=== PATIENT | female | born 1995 | race Caucasian/White ===

== ENCOUNTER 2017-03-12 12:54 | Inpatient (IN) | payer MEDICAID ==
[2017-03-12] MEDS ORDERED: Acetaminophen 325 MG Tab PO ONE (13:47)
[2017-03-12] MEDS ORDERED: Sodium Chloride 0.9% 10 ML Syringe FLUSH PRN (17:33)
[2017-03-12] MEDS ORDERED: Calcium Carbonate 500 MG Tab.Chew PO PRN (17:33)
[2017-03-12] MEDS ORDERED: Acetaminophen 325 MG Tab PO PRN (17:33)
[2017-03-12] MEDS ORDERED: Ondansetron 4 MG/2 ML SDV IV PRN (17:33)
--- NOTE | 2017-03-12 18:05 | PCM.LDHP ---
L&D History of Present Illness - General Date of Service: 03/12/17 Admit Problem/Dx: Patient Status Order with Admit Dx/Problem 03/12/17 17:33 Patient Status [ADT] Routine Admission Diagnosis/Problem Admission Diagnosis/Problem Source of Information: Patient History Limitations: Reports: No Limitations - Related Data Allergies/Adverse Reactions: Allergies Allergy/AdvReac Type Severity Reaction Status Date / Time No Known Allergies Allergy Verified 03/08/17 20:05 Home Medications: Home Meds Omeprazole [Omeprazole] 20 mg PO DAILY PRN 03/06/17 [History] Pnv with Ca,No.72/Iron/Fa [ Plus Tablet] 1 tab PO DAILY 03/06/17 [ History] Triamcinolone Acetonide [Triamcinolone Acetonide 0.1% Crm] 1 applic TOP ASDIRECTED PRN 03/06/17 [History] predniSONE [Take Home: predniSONE 20 MG, 2 Tab Pack] 20 mg PO DAILY PRN [History] Past Medical History 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 MICHELLE-03/12/2017 Psychiatric History: Reports: Anxiety, Depression - Past Surgical History Dermatological Surgical History: Reports: None H&P Review of Systems - Review of Systems: Review Of Systems: See Below General: Reports: No Symptoms HEENT: Reports: No Symptoms Pulmonary: Reports: No Symptoms Cardiovascular: Reports: No Symptoms Gastrointestinal: Reports: No Symptoms Genitourinary: Reports: No Symptoms Musculoskeletal: Reports: No Symptoms Skin: Reports: No Symptoms Psychiatric: Reports: No Symptoms Neurological: Reports: No Symptoms Hematologic/Lymphatic: Reports: No Symptoms Immunologic: Reports: No Symptoms L&D Exam - Exam Exam: See Below - Vital Signs Vital Signs: Last Vital Signs Temp 37.3 C 03/12/17 16:40 Pulse 92 03/12/17 16:40 Resp 16 03/12/17 16:40 BP 118/65 03/12/17 16:40 Pulse Ox 97 03/12/17 16:40 Weight: 172 kg - OB Specific Contraction Duration (sec): 100-140 Contraction Frequency (min): 3-3.5 Contraction Intensity: Moderate Presentation: Vertex - Waters Score Waters Score Cervix Position: Anterior Waters Score Consistency: Soft Waters Score Effacement: >80% Waters Score Dilation: 3-4 cm Waters Score Infant's Station: -2 Waters Score Total: 10 - Exam General: Alert, Oriented HEENT: PERRLA, Conjunctiva Clear, EACs Clear, EOMI, Hearing Intact, Mucosa Moist & [place], Nares Patent, Normal Nasal Septum, Posterior Pharynx Clear, Pupils Equal, Pupils Reactive, TMs Clear Neck: Supple, Trachea Midline Lungs: Clear to Auscultation, Normal Respiratory Effort Cardiovascular: Regular Rate, Regular Rhythm Abdomen: Normal Bowel Sounds, Soft, Pelvis Stable Genitourinary: Normal external exam Back Exam: Normal Inspection, Full Range of Motion Extremities: Normal Inspection Skin: Warm, Dry, Intact Neurological: Cranial Nerves Intact, Reflexes Equal Bilateral DTR: 2+: Patella (L), Patella (R) Psychiatric: Alert, Normal Affect, Normal Mood - Patient Data Lab Results last 24 hrs: Laboratory Results - last 24 hr 03/12/17 03/12/17 03/12/17 Range/Units 13:01 15:29 17:33 WBC 12.6 H (4.5-11.0) K/uL RBC 4.15 (3.30-5.50) M/uL Hgb 12.7 (12.0-15.0) g/dL Hct 37.6 (36.0-48.0) % MCV 91 (80-98) fL MCH 31 (27-31) pg MCHC 34 (32-36) % Plt Count 192 (150-400) K/uL Neut % (Auto) 77 H (36-66) % Lymph % (Auto) 12 L (24-44) % [place] % (Auto) 9 H (2-6) % Eos % (Auto) 3 (2-4) % Baso % (Auto) 0 (0-1) % Urine Color Yellow Urine Appearance Slightly cloudy Urine pH 6.0 (4.5-8.0) Ur Specific [place] 1.020 (1.008-1.030) Urine Protein Negative (NEGATIVE) mg/dL Urine Glucose (UA) Normal (NEGATIVE) mg/dL Urine Ketones Negative (NEGATIVE) mg/dL Urine Occult Blood Negative (NEGATIVE) Urine Nitrite Negative (NEGATIVE) Urine Bilirubin Small (NEGATIVE) Urine Urobilinogen 1 (NORMAL) mg/dL Ur Leukocyte Esterase Negative (NEGATIVE) Urine RBC 0-5 (0-5) Urine WBC 0-5 (0-5) Ur Epithelial Cells Few Amorphous Sediment Not seen Urine Bacteria Few Urine Mucus Moderate Urine Opiates Screen Negative (NEGATIVE) Ur Oxycodone Screen Negative (NEGATIVE) Urine Methadone Screen Negative (NEGATIVE) Ur Propoxyphene Screen Negative (NEGATIVE) Ur Barbiturates Screen Negative (NEGATIVE) Ur Tricyclics Screen Negative (NEGATIVE) Ur Phencyclidine Scrn Negative (NEGATIVE) Ur Amphetamine Screen Negative (NEGATIVE) U Methamphetamines Scrn Negative (NEGATIVE) Urine MDMA Screen Negative (NEGATIVE) U Benzodiazepines Scrn Negative (NEGATIVE) U Cocaine Metab Screen Negative (NEGATIVE) U Marijuana (THC) Screen Positive H (NEGATIVE) Result Diagrams: 03/12/17 15:29 - Problem List (1) SNOMED Code(s): 49756046 ICD Code: Z33.1 - STATE, INCIDENTAL Status: Acute Current Visit : Yes Qualifiers: Weeks of gestation: 40 weeks Qualified Code(s): Z3A.40 - 40 weeks gestation of (2) Active labor SNOMED Code(s): 03178754 ICD Code: [id number] - Status: Acute Current Visit: Yes Problem List Initiated/Reviewed/Updated: Yes Orders Last 24hrs: Active Orders 24 hr Category Date Time Status Patient Status [ADT] Routine ADT 03/12/17 17:33 Active Ambulate [RC] PER UNIT ROUTINE Care 03/12/17 17:33 Active Communication Order [RC] ASDIRECTED Care 03/12/17 17:33 Active Heart Tones [RC] PER UNIT ROUTINE Care 03/12/17 17:33 Active May Shower [RC] ASDIRECTED Care 03/12/17 17:33 Active Notify Provider Vital Signs [RC] PRN Care 03/12/17 17:33 Active Notify Provider [RC] PRN Care 03/12/17 17:33 Active OB Check [OM.PC] Click to Edit Care 03/12/17 13:01 Ordered Up ad Latesha [RC] ASDIRECTED Care 03/12/17 17:33 Active VTE/DVT Education [RC] Click to Edit Care 03/12/17 17:37 Active Vital Signs [RC] PER UNIT ROUTINE Care 03/12/17 17:33 Active Regular Diet [DIET] Diet 03/12/17 Dinner Active Acetaminophen [Tylenol] Med 03/12/17 17:33 Active 650 mg PO Q4H PRN Calcium Carbonate [Tums] Med 03/12/17 17:33 Active 1,000 mg PO Q2H PRN Ondansetron [Zofran] Med 03/12/17 17:33 Active 4 mg IV Q4H PRN Oxytocin/Normal Saline [Pitocin in NS 20 Units/1,000 ML Med 03/12/17 17:37 Active ] 20 unit in 1,000 ml IV ONETIME Sodium Chloride 0.9% [Saline Flush] Med 03/12/17 17:33 Ordered 10 ml FLUSH ASDIRECTED PRN fentaNYL [Sublimaze] Med 03/12/17 17:33 Active 100 mcg IVPUSH Q1H PRN DVT/VTE Prophylaxis Reflex [OM.PC] Routine Oth 03/12/17 17:33 Ordered Saline Lock Insert [OM.PC] Routine Oth 03/12/17 17:33 Ordered Resuscitation Status Routine Resus Stat 03/12/17 17:33 Ordered Medication Orders Acetaminophen (Tylenol) 650 mg PO Q4H PRN PRN Reason: Pain (Mild 1-3) and fever Calcium Carbonate/Glycine (Tums) 1,000 mg PO Q2H PRN PRN Reason: Indigestion Fentanyl (Sublimaze) 100 mcg IVPUSH Q1H PRN PRN Reason: Pain (moderate 4-6) Oxytocin/Sodium Chloride (Pitocin In Ns 20 Units/1,000 Ml) 20 unit in 1,000 mls @ 2,997 mls/hr IV ONETIME ONE; 999 MUNITS/MIN PRN Reason: Protocol Stop: 03/12/17 17:57 Ondansetron HCl (Zofran) 4 mg IV Q4H PRN PRN Reason: Nausea/Vomiting Sodium Chloride (Saline Flush) 10 ml FLUSH ASDIRECTED PRN PRN Reason: Keep Vein Open Assessment/Plan Comment:: 03/12/2017 21 yo at 40 0/7 weeks gestation came in today complaining of contractions Initial SVE was 3/95/-3 after walking, ball, and more activities patient is now 4.5/100/-2 with a bulgy bag Decision made to admit patient at this time. Labs-O negative, GBS negative, Rubella Immune, RPR nonreactive, Hep B negative, HIV negative, Hgb 12.7, and THC positive in urine Plan- Continue to monitor for active labor Continue to monitor intermittently for FHTs Up and about May shower, may go in tub May eat regular diet Pain management per patient request Plan and anticipate a vaginal delivery
[2017-03-12] MEDS ORDERED: Zolpidem 5 MG Tab PO PRN (22:40)
--- NOTE | 2017-03-12 22:42 | PCM.PNLD ---
Labor Progress Note - VS & Meds Vital Signs: Last Vital Signs Temp 37.3 C 03/12/17 19:00 Pulse 88 03/12/17 19:00 Resp 18 03/12/17 19:00 BP 114/67 03/12/17 19:00 Pulse Ox 99 03/12/17 19:00 Active Medications: Current Medications Acetaminophen (Tylenol) 650 mg PO Q4H PRN PRN Reason: Pain (Mild 1-3) and fever Calcium Carbonate/Glycine (Tums) 1,000 mg PO Q2H PRN PRN Reason: Indigestion Fentanyl (Sublimaze) 100 mcg IVPUSH Q1H PRN PRN Reason: Pain (moderate 4-6) Ondansetron HCl (Zofran) 4 mg IV Q4H PRN PRN Reason: Nausea/Vomiting Sodium Chloride (Saline Flush) 10 ml FLUSH ASDIRECTED PRN PRN Reason: Keep Vein Open Discontinued Medications Acetaminophen (Tylenol) 650 mg PO NOW ONE Stop: 03/12/17 13:48 Last Admin: 03/12/17 13:59 Dose: 650 mg Oxytocin/Sodium Chloride (Pitocin In Ns 20 Units/1,000 Ml) 20 unit in 1,000 mls @ 2,997 mls/hr IV ONETIME ONE; 999 MUNITS/MIN PRN Reason: Protocol Stop: 03/12/17 17:57 - Uterine Contractions Uterine Monitoring Mode: External [place] Contraction Frequency (min): 3-4 Contraction Duration (sec): 50-120 Contraction Intensity: Strong Uterine Resting Tone: Soft - Vaginal Exam Dilation (cm): 4 Effacement (Percent): 90 Station: -2 Cervical Position: Anterior Sterile Vaginal Exam Performed By: Susan Chris Vaginal Exam Comment: bulging bag - Labor Progress (Free Text) Labor Progress: 03/12/2017 Patient still trey regularly SVE remains unchanged Discussed getting therapuetic rest and starting with Pitocin and AROM in am since patient has been up all day and night Patient and significant other agree with plan of care
--- NOTE | 2017-03-12 22:45 | PCM.PNLD ---
Labor Progress Note - VS & Meds Vital Signs: Last Vital Signs Temp 37.3 C 03/12/17 19:00 Pulse 88 03/12/17 19:00 Resp 18 03/12/17 19:00 BP 114/67 03/12/17 19:00 Pulse Ox 99 03/12/17 19:00 Active Medications: Current Medications Acetaminophen (Tylenol) 650 mg PO Q4H PRN PRN Reason: Pain (Mild 1-3) and fever Calcium Carbonate/Glycine (Tums) 1,000 mg PO Q2H PRN PRN Reason: Indigestion Fentanyl (Sublimaze) 100 mcg IVPUSH Q1H PRN PRN Reason: Pain (moderate 4-6) Ondansetron HCl (Zofran) 4 mg IV Q4H PRN PRN Reason: Nausea/Vomiting Sodium Chloride (Saline Flush) 10 ml FLUSH ASDIRECTED PRN PRN Reason: Keep Vein Open Zolpidem Tartrate (Ambien) 5 mg PO BEDTIME PRN PRN Reason: Sleep Discontinued Medications Acetaminophen (Tylenol) 650 mg PO NOW ONE Stop: 03/12/17 13:48 Last Admin: 03/12/17 13:59 Dose: 650 mg Oxytocin/Sodium Chloride (Pitocin In Ns 20 Units/1,000 Ml) 20 unit in 1,000 mls @ 2,997 mls/hr IV ONETIME ONE; 999 MUNITS/MIN PRN Reason: Protocol Stop: 03/12/17 17:57 - Uterine Contractions Uterine Monitoring Mode: External [place] Contraction Frequency (min): 3-4 Contraction Duration (sec): 50-120 Contraction Intensity: Strong Uterine Resting Tone: Soft - Vaginal Exam Dilation (cm): 4 Effacement (Percent): 90 Station: -2 Cervical Position: Anterior Sterile Vaginal Exam Performed By: Susan Chris Vaginal Exam Comment: bulging bag - Labor Progress (Free Text) Labor Progress: 03/12/2017 @ 1900 SVE-4-5/90/-1-2 bulgy bag Going to monitor patient and allow her to walk a few more hours then will come up with plan of care for the night FHTs category one Pain well managed with position changes Plan- Continue to monitor for active labor Continue to intermittent monitor FHTs Pain management per patient request Plan and anticipate vaginal delivery
[2017-03-13] MEDS: fentaNYL 100 MCG/2 ML SDV IVPUSH PRN ×2 (00:25→02:33)
[2017-03-13] MEDS ORDERED: fentaNYL 100 MCG/2 ML SDV ONE ×2 (06:39→12:06)
[2017-03-13] MEDS ORDERED: Ropivacaine 100 ML ONE (06:40)
[2017-03-13] MEDS ORDERED: ePHEDrine 50 MG/ML SDV ONE (07:20)
[2017-03-13] MEDS ORDERED: Sodium Chloride 0.9% 1,000 ML IV SCH (07:30)
--- NOTE | 2017-03-13 07:53 | ANES ---
DATE OF SERVICE: 03/13/2017 INDICATION: This 21-year-old has been in labor for about 12 hours. This is her second child, and she is dilated to 5. I am asked to place an epidural. We discussed risks and benefits of the epidural and how the procedure is carried out. She has understanding of these and signed an informed consent. TECHNIQUE: She was placed in a sitting position on the edge of the bed. She states she has a curve in her back. On examination, I elected to go at L2-3. I gave her a 2 mL skin wheal of 1% Xylocaine and another 2 to 3 mL into the deeper tissue. Due to the fact that I kept hitting bone, I was unable to access the epidural space at that level and moved down to the next level. Again, the Xylocaine at skin, 1 to 2 mL and another couple of mL into the deeper tissue. I placed a 17-gauge Tuohy needle into the epidural space at that level using a loss of resistance technique. I was unable to aspirate blood, fluid, or air from the epidural needle and proceeded to give her a bolus of 10 mL, which included 5 mL of 1% Xylocaine with epinephrine, 2 mL of preservative-free fentanyl, and 3 mL of preservative- free normal saline. I then threaded an epidural catheter approximately 1 to 2 cm into the epidural space and removed the needle over the catheter. The catheter was brought up over her right shoulder and was connected to a ropivacaine infusion 0.2% at 12 mL/hour, to be titrated p.r.n. pain. Within minutes of the initial bolus of fentanyl and Xylocaine, the patient had no discomfort whatsoever during the contractions. She tolerated the procedure well. Currently, her vital signs are stable. Her color is pink. She is alert, oriented, and shows no signs of complications. Anesthesia service will be contacted if they need further assistance. NAME OF PROCEDURE: Labor epidural. Abimael Lim CRNA /[id number]
[2017-03-13] MEDS ORDERED: Lactated Ringers 1,000 ML IV SCH (09:45)
[2017-03-13] MEDS ORDERED: diphenhydrAMINE 50 MG/ML SDV IVPUSH PRN (10:08)
[2017-03-13] MEDS ORDERED: ePHEDrine 50 MG/ML SDV IVPUSH PRN (10:08)
[2017-03-13] MEDS ORDERED: Ropivacaine 100 ML EPIDUR SCH (10:08)
[2017-03-13] MEDS ORDERED: Naloxone 0.4 MG/ML SDV IVPUSH PRN ×2 (10:08→12:26)
--- NOTE | 2017-03-13 11:27 | PCM.PNLD ---
Labor Progress Note - VS & Meds Vital Signs: Last Vital Signs Temp 37.6 C 03/13/17 10:10 Pulse 91 03/13/17 10:25 Resp 18 03/12/17 21:47 BP 119/58 L 03/13/17 10:25 Pulse Ox 98 03/13/17 10:10 Active Medications: Current Medications Acetaminophen (Tylenol) 650 mg PO Q4H PRN PRN Reason: Pain (Mild 1-3) and fever Calcium Carbonate/Glycine (Tums) 1,000 mg PO Q2H PRN PRN Reason: Indigestion Diphenhydramine HCl (Benadryl) 50 mg IVPUSH Q6H PRN PRN Reason: ITCHING Ephedrine Sulfate (Ephedrine Sulfate) 5 - 10 mg IVPUSH ASDIRECTED PRN PRN Reason: IF SYSTOLIC BP LESS THAN 100 Fentanyl (Sublimaze) 100 mcg IVPUSH Q1H PRN PRN Reason: Pain (moderate 4-6) Last Admin: 03/13/17 02:33 Dose: 100 mcg Oxytocin/Sodium Chloride (Pitocin In Ns 20 Units/1,000 Ml) 20 unit in 1,000 mls @ 9 mls/hr IV TITRATE DOMINIC; 3 MUNITS/MIN PRN Reason: Protocol Last Titration: 03/13/17 10:10 Dose: 4 munits/min, 12 mls/hr Sodium Chloride (Normal Saline) 1,000 mls @ 999 mls/hr IV ASDIRECTED DOMINIC Last Infusion: 03/13/17 07:25 Dose: 999 mls/hr Lactated Ringer's (Ringers, Lactated) 1,000 mls @ 125 mls/hr IV ASDIRECTED DOMINIC Last Admin: 03/13/17 09:00 Dose: 125 mls/hr Ropivacaine (Naropin 0.2%) 100 mls @ 12 mls/hr EPIDUR ASDIRECTED DOMINIC; Titrate PRN Reason: Protocol Naloxone HCl (Narcan) 0.1 mg IVPUSH Q5M PRN PRN Reason: IF RESP RATE LESS THAN 6 Ondansetron HCl (Zofran) 4 mg IV Q4H PRN PRN Reason: Nausea/Vomiting Sodium Chloride (Saline Flush) 10 ml FLUSH ASDIRECTED PRN PRN Reason: Keep Vein Open Zolpidem Tartrate (Ambien) 5 mg PO BEDTIME PRN PRN Reason: Sleep Last Admin: 03/12/17 23:07 Dose: 5 mg Discontinued Medications Acetaminophen (Tylenol) 650 mg PO NOW ONE Stop: 03/12/17 13:48 Last Admin: 03/12/17 13:59 Dose: 650 mg Ephedrine Sulfate (Ephedrine Sulfate) Confirm Administered Dose 50 mg .ROUTE .STK-MED ONE Stop: 03/13/17 07:21 Last Admin: 03/13/17 10:14 Dose: Not Given Fentanyl (Sublimaze) Confirm Administered Dose 100 mcg .ROUTE .STK-MED ONE Stop: 03/13/17 06:40 Oxytocin/Sodium Chloride (Pitocin In Ns 20 Units/1,000 Ml) 20 unit in 1,000 mls @ 2,997 mls/hr IV ONETIME ONE; 999 MUNITS/MIN PRN Reason: Protocol Stop: 03/12/17 17:57 Ropivacaine (Naropin 0.2%) Confirm Administered Dose 100 mls @ as directed .ROUTE .STK-MED ONE Stop: 03/13/17 06:41 - Uterine Contractions Uterine Monitoring Mode: External [place] Contraction Frequency (min): 2.5-3 Contraction Duration (sec): 90-100 Contraction Intensity: Strong Uterine Resting Tone: Soft - Vaginal Exam Dilation (cm): 6 Effacement (Percent): 100 Station: -2 Cervical Position: Anterior Sterile Vaginal Exam Performed By: Susan Chris Vaginal Exam Comment: start pitocin. Epidural in. Reposition side to side. - Labor Progress (Free Text) Labor Progress: 03/13/2017 Patient not getting full relief from epidural and has not been able to sleep yet SVE-6/100/-2 and ballotable not well enough engaged for AROM Patient educated on all options. Patient states she is ready and wants a c- section Dr. Salgado and Team called Pitocin discontinued Patient prepped for
--- NOTE | 2017-03-13 11:31 | PCM.PNLD ---
Labor Progress Note - VS & Meds Vital Signs: Last Vital Signs Temp 37.6 C 03/13/17 10:10 Pulse 91 03/13/17 10:25 Resp 18 03/12/17 21:47 BP 119/58 L 03/13/17 10:25 Pulse Ox 98 03/13/17 10:10 Active Medications: Current Medications Acetaminophen (Tylenol) 650 mg PO Q4H PRN PRN Reason: Pain (Mild 1-3) and fever Calcium Carbonate/Glycine (Tums) 1,000 mg PO Q2H PRN PRN Reason: Indigestion Diphenhydramine HCl (Benadryl) 50 mg IVPUSH Q6H PRN PRN Reason: ITCHING Ephedrine Sulfate (Ephedrine Sulfate) 5 - 10 mg IVPUSH ASDIRECTED PRN PRN Reason: IF SYSTOLIC BP LESS THAN 100 Fentanyl (Sublimaze) 100 mcg IVPUSH Q1H PRN PRN Reason: Pain (moderate 4-6) Last Admin: 03/13/17 02:33 Dose: 100 mcg Oxytocin/Sodium Chloride (Pitocin In Ns 20 Units/1,000 Ml) 20 unit in 1,000 mls @ 9 mls/hr IV TITRATE DOMINIC; 3 MUNITS/MIN PRN Reason: Protocol Last Titration: 03/13/17 10:10 Dose: 4 munits/min, 12 mls/hr Sodium Chloride (Normal Saline) 1,000 mls @ 999 mls/hr IV ASDIRECTED DOMINIC Last Infusion: 03/13/17 07:25 Dose: 999 mls/hr Lactated Ringer's (Ringers, Lactated) 1,000 mls @ 125 mls/hr IV ASDIRECTED DOMINIC Last Admin: 03/13/17 09:00 Dose: 125 mls/hr Ropivacaine (Naropin 0.2%) 100 mls @ 12 mls/hr EPIDUR ASDIRECTED DOMINIC; Titrate PRN Reason: Protocol Naloxone HCl (Narcan) 0.1 mg IVPUSH Q5M PRN PRN Reason: IF RESP RATE LESS THAN 6 Ondansetron HCl (Zofran) 4 mg IV Q4H PRN PRN Reason: Nausea/Vomiting Sodium Chloride (Saline Flush) 10 ml FLUSH ASDIRECTED PRN PRN Reason: Keep Vein Open Zolpidem Tartrate (Ambien) 5 mg PO BEDTIME PRN PRN Reason: Sleep Last Admin: 03/12/17 23:07 Dose: 5 mg Discontinued Medications Acetaminophen (Tylenol) 650 mg PO NOW ONE Stop: 03/12/17 13:48 Last Admin: 03/12/17 13:59 Dose: 650 mg Ephedrine Sulfate (Ephedrine Sulfate) Confirm Administered Dose 50 mg .ROUTE .STK-MED ONE Stop: 03/13/17 07:21 Last Admin: 03/13/17 10:14 Dose: Not Given Fentanyl (Sublimaze) Confirm Administered Dose 100 mcg .ROUTE .STK-MED ONE Stop: 03/13/17 06:40 Oxytocin/Sodium Chloride (Pitocin In Ns 20 Units/1,000 Ml) 20 unit in 1,000 mls @ 2,997 mls/hr IV ONETIME ONE; 999 MUNITS/MIN PRN Reason: Protocol Stop: 03/12/17 17:57 Ropivacaine (Naropin 0.2%) Confirm Administered Dose 100 mls @ as directed .ROUTE .STK-MED ONE Stop: 03/13/17 06:41 - Uterine Contractions Uterine Monitoring Mode: External [place] Contraction Frequency (min): 2.5-3 Contraction Duration (sec): 90-100 Contraction Intensity: Strong Uterine Resting Tone: Soft - Vaginal Exam Dilation (cm): 6 Effacement (Percent): 100 Station: -2 Cervical Position: Anterior Sterile Vaginal Exam Performed By: Susan Chris Vaginal Exam Comment: start pitocin. Epidural in. Reposition side to side. - Labor Progress (Free Text) Labor Progress: 03/13/2017 Patient somewhat comfortable after epidural placement Urinary Catheter placed SVE-5/100/-2 ballotable Patient educated on plan of care and in agreement, patient states she is so tired. Plan- Will continue on Pitocin for labor augmentation Will Continue to monitor labor Will continue to monitor FHTs Pain management with epidural Will reassess at lunch Plan and anticipate a vaginal delivery
[2017-03-13] MEDS ORDERED: Lidocaine 2% 5 ML SDV ONE (12:06)
[2017-03-13] MEDS ORDERED: cefOXitin 1 GM Vial ONE (12:14)
[2017-03-13] MEDS ORDERED: Oxytocin 10 Units/1 ML SDV ONE (12:14)
[2017-03-13] MEDS ORDERED: HYDROmorphone/Normal Saline 15 MG/30 ML PCA IV PRN (12:26)
[2017-03-13] MEDS ORDERED: Naloxone 0.4 MG/ML SDV IV PRN (12:29)
[2017-03-13] MEDS ORDERED: cefOXitin 2 GM Vial ONE (12:49)
[2017-03-13] MEDS ORDERED: Acetaminophen 325 MG Tab, 50 Tab Bulk Bottle PO PRN (16:19)
[2017-03-13] MEDS: Dextrose 5%-Lactated Ringers 1,000 ML IV SCH ×2 (16:24→23:16)
[2017-03-13] MEDS ORDERED: Lanolin 100% Cream 40 GM Tube TOP PRN (16:34)
[2017-03-13] MEDS ORDERED: Ibuprofen 200 MG Tab, 24 Tab Bulk Bottle PO PRN (16:55)
[2017-03-13] MEDS: Ibuprofen 200 MG Tab, 24 Tab Bulk Bottle PO PRN (18:27)
[2017-03-13] MEDS: cefOXitin 2 GM in Sodium Chloride 0.9% 50 ML IV SCH (19:48)
[2017-03-14] MEDS: cefOXitin 2 GM in Sodium Chloride 0.9% 50 ML IV SCH ×4 (01:25→19:30)
[2017-03-14] MEDS ORDERED: Dextrose 5%-Lactated Ringers 1,000 ML IV SCH (08:30)
[2017-03-14] MEDS: Docusate Sodium 100 MG Cap PO SCH ×2 (10:04→23:03)
[2017-03-14] MEDS ORDERED: Sodium Chloride 0.9% 10 ML Syringe FLUSH PRN (16:18)
[2017-03-14] MEDS: HYDROmorphone 2 MG Tab PO PRN (16:56)
[2017-03-15] MEDS: HYDROmorphone 2 MG Tab PO PRN ×2 (01:37→17:21)
[2017-03-15] MEDS: cefOXitin 2 GM in Sodium Chloride 0.9% 50 ML IV SCH (02:46)
[2017-03-15] MEDS ORDERED: Magnesium Hydroxide 400 MG/5 ML Susp 30 ML Cup PO ONE (09:15)
[2017-03-15] MEDS: Docusate Sodium 100 MG Cap PO SCH ×2 (09:25→20:19)
[2017-03-15] MEDS ORDERED: Bisacodyl 5 MG Tab PO ONE (10:15)
[2017-03-16] MEDS: Ibuprofen 200 MG Tab, 24 Tab Bulk Bottle PO PRN (08:30)
[2017-03-16] MEDS: Docusate Sodium 100 MG Cap PO SCH (08:32)
--- NOTE | 2017-03-16 08:51 | DISCH ---
ADMISSION DIAGNOSIS: Intrauterine and failure to progress labor. DISCHARGE DIAGNOSIS: section, term with failure to progress. HISTORY: Marquita Gallardo is a 21-year-old female, who was in labor on 03/13/2017. She had failure to progress. After preoperative evaluation and discussion of possible risks and possible complications, she wished to proceed with surgical procedure. HOSPITAL COURSE: Marquita had her on 03/13/2017. She had no operative complications. She had delivery of a healthy baby. She is nursing. Pain is controlled. Her activity is good. Vital signs have been stable. She is ready to be discharged to home on 03/16/2017. PHYSICAL EXAMINATION: GENERAL: Marquita is a 21-year-old female. She is alert and orientated. SKIN: Warm and dry. Color good. VITAL SIGNS: TPR 98.3, 68, 16, blood pressure 99/58. HEENT: Negative. NECK: Supple. HEART: Regular rate and rhythm. LUNGS: Clear. ABDOMEN: She has Aquacel dressing on her incision. This will be removed prior to discharge, and Steri-Strips will be replaced if they come off with Aquacel dressing. EXTREMITIES: Without peripheral edema and no calf tenderness. DISPOSITION: Discharged to home. CONDITION: Stable and improving. FOLLOWUP: With Yenni Ramachandran PA-C, on 03/25/2017 at 1300 hours. HOME MEDICATIONS: Dilaudid 2 mg 1 to 2 every 4 hours p.r.n. pain #25, Tylenol bottle to use as directed 1 to 2 every 4 hours p.r.n. pain, Colace 100 mg oral twice daily #100, ibuprofen, Motrin bottle 600 mg q.6 hours p.r.n. pain, lanolin 40 g topical use as directed to affected area. She is to resume her home medication of omeprazole 20 mg daily, Plus tablets one daily, triamcinolone acetonide 0.1% cream topical p.r.n. itching, discontinue taking the prednisone. DISCHARGE DIET: Usual diet as tolerated. Drink 8 to 10 glasses a day. ACTIVITY: As tolerated. No lifting more than baby in car seat for [address], do not drive on pain medication. May shower. Notify provider of fever or increased pain. Keep incision site clean and dry. Use incentive spirometer 10 times every hour while awake.
[2017-03-16 09:34] VITALS: BP 113/65
--- NOTE | 2017-03-16 14:06 | PN ---
DATE OF SERVICE: 03/15/2017 The patient has been afebrile with stable vital signs. No major problems were noted overnight. She has not moved her bowels as of yet. We gave her some bowel stimulation today. She has moved to a regular diet and oral pain medication, have her get the shower today. She may be ready for discharge home tomorrow. Lokesh Salgado MD /[id number]
--- NOTE | 2017-03-16 17:36 | OR ---
DATE OF PROCEDURE: 03/13/2017 PREOPERATIVE DIAGNOSIS: Term with failure to descend. POSTOPERATIVE DIAGNOSIS: Term with failure to descend. OPERATIVE PROCEDURE: section ([id number]). ANESTHESIA: Spinal. ENRICHMENT DIRECTOR: Susan Chris CNM INDICATION FOR PROCEDURE: This is a 21-year-old who was had excess of 24 hours of contraction with term . The baby has still not descended down. At this point, the decision was made to proceed with a section. The patient has not has her membranes ruptured without the head descending into the pelvis rupturing of the membranes. This point was felt to be at high risk in terms of the possibilities of prolapse of the cord and given this a section will be planned at this time. Potential risks were reviewed with the patient including bleeding, infection, injury to the baby and mother as well as remote possibility of cardiopulmonary, septic, or hemorrhagic complications leading to were discussed, and the patient wishes to proceed. DESCRIPTION OF PROCEDURE: The patient was taken to the operating room and placed in a supine position. After general anesthetic had been placed, a roll was positioned underneath the right hip to offload pressure on the vena cava. The Colmenares catheter was inserted and the abdomen was prepped and draped, a transverse Pfannenstiel type incision was made and carried down through the skin, subcutaneous tissue, and anterior rectus sheath, subrectus sheath flaps were then raised medially, superiorly, and inferiorly, and the midline fascia divided. Peritoneal reflection of the bladder and the uterus was divided and dissected downward. Transverse lower uterine segment incision was then made and carried down through the thickness of the uterus. The membranes were opened and clear amniotic fluid was present, and a viable male was then delivered through a vertex presentation. The face was not entirely facing anteriorly, but it was slightly so, so this would be somewhat of a malpresentation. This along with the large size of the baby likely prevented descent into the pelvis. After delivery of the baby, the cord was cut and clamped and routine care was given off the field. The scores at one and five and ten minutes were all 9. The placental membranes were then delivered. The patient was given IV and intrauterine oxytocin and IV Suboxone. Good uterine contractions were noted. The uterus was then closed with 2 layers of 2-0 Vicryl stitch as peritoneal reflection of the bladder and the uterus. The midline fascia was approximated with #2 Vicryl stitch as was the anterior rectus sheath, and the skin then closed with a 4-0 Vicryl subcuticular stitch. Steri-Strips were applied and the patient was taken to the recovery room in a satisfactory condition. Nurse rail operator Susan Chris played an essential role in assisting in this case, helping to position the patient, retract structures as needed, as well as suturing and cutting sutures as indicated and likewise assisting and initial management of the . Her presence improved the patient's safety and decreased operative time. Lokesh Salgado MD /[id number]
--- NOTE | 2017-03-17 12:27 | PN ---
DATE OF SERVICE: 03/14/2017 The patient has been afebrile with stable vital signs. We will back down her IV rate and go up to a regular diet today. We will discontinue her Colmenares catheter and leave her CONSUMER EDUCATOR going for today. Lokesh Salgado MD /[id number]
== END 2017-03-16 11:30 | disposition home or self-care (01) | DRG 766 ==
LOC: JP.OBCHECK 12:54 → JP.OB 17:10 → OBSVTOIN 03-13 12:44 → JP.MS 03-13 14:53
PROVIDERS: ADMIT Advanced Practice Midwife; ATTEND Advanced Practice Midwife
PROC: 10D00Z1 Extraction of Products of Conception, Low, Open Approach (ICD-10-PCS; principal; 2017-03-13)
DX: O62.9 Abnormality of forces of labor, unspecified (principal); O32.4XX0 Maternal care for high head at term, not applicable or unspecified; O32.8XX0 Maternal care for other malpresentation of fetus, not applicable or unspecified; P08.1 Other heavy for gestational age newborn; Z3A.40 40 weeks gestation of pregnancy; Z37.0 Single live birth
CPT/HCPCS: 36415; 51702; 80305; 81001; 85025; 85027; 85460; 86850; 86900; 86901; 88307; 94762; 99211; A9270-GY; J0694; J1170; J2590; J2790; J2795; J3010; J7040; J7042; J7050; J7120

== ENCOUNTER 2018-01-30 07:39 | Emergency (ER) | payer MEDICAID ==
[2018-01-30 07:58] VITALS: BP 125/63
[2018-01-30] MEDS ORDERED: Alum Hydrox/Mag Hydrox/Simeth 15 ML, Lidocaine 2% 15 ML PO ONE ×2 (08:32)
--- NOTE | 2018-01-30 08:36 | EDM.PDOC ---
ED HPI GENERAL MEDICAL PROBLEM - General Chief Complaint: Chest Pain Stated Complaint: CHEST PAIN/LT SHOULDER PAIN Time Seen by Provider: 01/30/18 08:33 Source of Information: Reports: Patient History Limitations: Reports: No Limitations - History of Present Illness INITIAL COMMENTS - FREE TEXT/NARRATIVE: pt is 36 weeks and she has had discomfort in her chest all nite. She now has pain in her jaws. She is getting her wisdom teeth in She has tenderness in the tmj area. Onset: Other ( started during the nite. ) Duration: Hour(s):, Getting Worse Location: Reports: Chest, Other (pt has jaw pain) Associated Symptoms: Reports: Chest Pain, Other (pt is 36 weeks pregmant. 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 MICHELLE-03/12/2017 Psychiatric History: Reports: Anxiety, Depression - Past Surgical History Dermatological Surgical History: Reports: None Social & Family History - Tobacco Use Smoking Status *Q: Current Every Day Smoker Years of Tobacco use: 7 Packs/Tins Daily: 0.5 ED ROS GENERAL - Review of Systems Review Of Systems: See Below Constitutional: Reports: No Symptoms HEENT: Reports: Other (pt has jaw pain and pain in the tmj area. ) Respiratory: Reports: No Symptoms Cardiovascular: Reports: No Symptoms Endocrine: Reports: No Symptoms GI/Abdominal: Reports: No Symptoms : Reports: No Symptoms Musculoskeletal: Reports: No Symptoms Skin: Reports: No Symptoms ED EXAM, GENERAL - Physical Exam Exam: See Below Free Text/Narrative:: pt arrived with pain in her jaw and chest pain. She now has pressure in the lower chest. Exam Limited By: No Limitations General Appearance: Alert, Anxious, Moderate Distress Ears: Normal TMs Nose: Normal Inspection Throat/Mouth: Normal Inspection Head: Atraumatic Neck: Normal Inspection Respiratory/Chest: No Respiratory Distress Cardiovascular: Regular Rate, Rhythm GI/Abdominal: Soft, Non-Tender, Other (mild tenderness in the epigastric ) (Female) Exam: Deferred Rectal (Female) Exam: Deferred Back Exam: Normal Inspection Extremities: Normal Inspection Neurological: Alert, Oriented, Normal Cognition Psychiatric: Normal Affect Course - Vital Signs Last Recorded V/S: Last Vital Signs Temp 36.9 C 01/30/18 08:16 Pulse 109 H 01/30/18 08:16 Resp 16 01/30/18 08:16 BP 125/63 01/30/18 08:16 Pulse Ox 98 01/30/18 08:16 - Orders/Labs/Meds Orders: Active Orders 24 hr Category Date Time Status EKG Documentation Completion [RC] ASDIRECTED Care 01/30/18 08:22 Active EKG Documentation Completion [RC] ASDIRECTED Care 01/30/18 11:12 Active Sodium Chloride 0.9% [Saline Flush] Med 01/30/18 09:15 Active 10 ml FLUSH ASDIRECTED PRN Saline Lock Insert [OM.PC] Routine Oth 01/30/18 09:15 Ordered EKG 12 Lead [EK] Routine Ther 01/30/18 08:22 Ordered EKG 12 Lead [EK] Routine Ther 01/30/18 11:12 Ordered Medication Orders Sodium Chloride (Saline Flush) 10 ml FLUSH ASDIRECTED PRN PRN Reason: Keep Vein Open Last Admin: 01/30/18 09:57 Dose: 10 ml Labs: Laboratory Tests 01/30/18 01/30/18 01/30/18 Range/Units 08:23 08:23 08:23 WBC 11.2 H (4.5-11.0) K/uL RBC 3.90 (3.30-5.50) M/uL Hgb 11.4 L (12.0-15.0) g/dL Hct 33.8 L (36.0-48.0) % MCV 87 (80-98) fL MCH 29 (27-31) pg MCHC 34 (32-36) % Plt Count 139 L (150-400) K/uL Neut % (Auto) 81 H (36-66) % Lymph % (Auto) 10 L (24-44) % Upson % (Auto) 9 H (2-6) % Eos % (Auto) 1 L (2-4) % Baso % (Auto) 0 (0-1) % Sodium 135 L (140-148) mmol/L Potassium 3.6 (3.6-5.2) mmol/L Chloride 103 (100-108) mmol/L Carbon Dioxide 21 (21-32) mmol/L Anion Gap 14.6 H (5.0-14.0) mmol/L BUN 6 L (7-18) mg/dL Creatinine 0.5 L (0.6-1.0) mg/dL Est Cr Clr Drug Dosing 148.47 mL/min Estimated GFR (MDRD) > 60 (>60) Glucose 77 (74-106) mg/dL Calcium 8.3 L (8.5-10.1) mg/dL Total Bilirubin 1.0 (0.2-1.0) mg/dL AST 27 (15-37) U/L ALT 31 (12-78) U/L Alkaline Phosphatase 139 H (46-116) U/L Troponin I (0.000-0.056) ng/mL Total Protein 6.1 L (6.4-8.2) g/dL Albumin 2.3 L (3.4-5.0) g/dL Globulin 3.8 H (2.3-3.5) g/dL Albumin/Globulin Ratio 0.6 L (1.2-2.2) Lipase 74 (73-393) U/L 01/30/18 01/30/18 Range/Units 09:14 11:34 WBC (4.5-11.0) K/uL RBC (3.30-5.50) M/uL Hgb (12.0-15.0) g/dL Hct (36.0-48.0) % MCV (80-98) fL MCH (27-31) pg MCHC (32-36) % Plt Count (150-400) K/uL Neut % (Auto) (36-66) % Lymph % (Auto) (24-44) % Upson % (Auto) (2-6) % Eos % (Auto) (2-4) % Baso % (Auto) (0-1) % Sodium (140-148) mmol/L Potassium (3.6-5.2) mmol/L Chloride (100-108) mmol/L Carbon Dioxide (21-32) mmol/L Anion Gap (5.0-14.0) mmol/L BUN (7-18) mg/dL Creatinine (0.6-1.0) mg/dL Est Cr Clr Drug Dosing mL/min Estimated GFR (MDRD) (>60) Glucose (74-106) mg/dL Calcium (8.5-10.1) mg/dL Total Bilirubin (0.2-1.0) mg/dL AST (15-37) U/L ALT (12-78) U/L Alkaline Phosphatase (46-116) U/L Troponin I < 0.017 < 0.017 (0.000-0.056) ng/mL Total Protein (6.4-8.2) g/dL Albumin (3.4-5.0) g/dL Globulin (2.3-3.5) g/dL Albumin/Globulin Ratio (1.2-2.2) Lipase (73-393) U/L Meds: Medications Generic Name Dose Route Start Last Admin Trade Name Freq PRN Reason Stop Dose Admin Sodium Chloride 10 ml 01/30/18 09:15 01/30/18 09:57 Saline Flush FLUSH 10 ml ASDIRECTED PRN Administration Keep Vein Open Discontinued Medications Generic Name Dose Route Start Last Admin Trade Name Freq PRN Reason Stop Dose Admin Al Hydroxide/Mg Hydroxide 15 0 ml 01/30/18 08:32 01/30/18 08:54 ml/ Lidocaine HCl 15 ml PO 01/30/18 08:33 30 ml ONETIME ONE Administration Hydromorphone HCl 0.5 mg 01/30/18 09:15 01/30/18 09:57 Dilaudid IVPUSH 01/30/18 09:16 0.5 mg ONETIME ONE Administration Hydromorphone HCl 0.5 mg 01/30/18 11:12 01/30/18 11:39 Dilaudid IVPUSH 01/30/18 11:13 0.5 mg ONETIME ONE Administration Sucralfate 1 gm 01/30/18 10:38 01/30/18 11:07 Carafate PO 01/30/18 10:39 1 gm ONETIME ONE Administration - Re-Assessments/Exams Free Text/Narrative Re-Assessment/Exam: 01/30/18 13:06 pt had 2 ekgs each with inverted t waves in the ant precordial leads. Her trop is normal She is much better than on arrival. She has had a Gi cocktail with minimal relieve, she had dilaudid with some relief. She had carafate 1 gm. A second ekg was obtained which was the same. Her trop on repeat was normal. She still is having flashes of pain but seemes better. 13:07 Departure - Departure Time of Disposition: 13:09 Disposition: Home, Self-Care 01 Condition: Fair Clinical Impression: Chest pain, 36 weeks gestation of , Reflux esophagitis Instructions: Esophagitis, Gastroesophageal Reflux Disease, Adult Referrals: Imelda Cabrera CNM [Primary Care Provider] - Forms: ED Department Discharge Care Plan Goals: carafate 1g m tid, if pain returns and is severe rtc and will cat scan the chest , rtc for a echo- cardicram appt with Medina Cabrera on thursday. prilosec 20mg 1 tab daily - My Orders Last 24 Hours: My Active Orders 01/30/18 08:22 EKG Documentation Completion [RC] ASDIRECTED EKG 12 Lead [EK] Routine 01/30/18 09:15 Sodium Chloride 0.9% [Saline Flush] 10 ml FLUSH ASDIRECTED PRN Saline Lock Insert [OM.PC] Routine 01/30/18 11:12 EKG Documentation Completion [RC] ASDIRECTED EKG 12 Lead [EK] Routine - Assessment/Plan Last 24 Hours: My Active Orders 01/30/18 08:22 EKG Documentation Completion [RC] ASDIRECTED EKG 12 Lead [EK] Routine 01/30/18 09:15 Sodium Chloride 0.9% [Saline Flush] 10 ml FLUSH ASDIRECTED PRN Saline Lock Insert [OM.PC] Routine 01/30/18 11:12 EKG Documentation Completion [RC] ASDIRECTED EKG 12 Lead [EK] Routine
[2018-01-30] MEDS ORDERED: Sodium Chloride 0.9% 10 ML Syringe FLUSH PRN (09:15)
[2018-01-30] MEDS ORDERED: HYDROmorphone 0.5 MG/0.5 ML Syringe IVPUSH ONE ×2 (09:15→11:12)
[2018-01-30] MEDS ORDERED: Sucralfate Suspension 1 GM/10 ML Cup PO ONE (10:38)
== END 2018-01-30 14:00 | disposition home or self-care (01) ==
LOC: JP.ED 07:39
DX: O99.613 Diseases of the digestive system complicating pregnancy, third trimester (principal); K21.0 Gastro-esophageal reflux disease with esophagitis; O99.333 Smoking (tobacco) complicating pregnancy, third trimester; F17.210 Nicotine dependence, cigarettes, uncomplicated; Z3A.36 36 weeks gestation of pregnancy
CPT/HCPCS: 36415; 80053; 83690; 84484; 85025; 93005; 99284; A9270; J1170; J7050

== ENCOUNTER 2018-02-22 05:29 | Inpatient (IN) | payer MEDICAID ==
[2018-02-22] MEDS ORDERED: Lactated Ringers 1,000 ML IV SCH (06:30)
[2018-02-22] MEDS ORDERED: cefOXitin 2 GM Vial ONE ×2 (06:47→07:01)
[2018-02-22] MEDS ORDERED: Oxytocin 10 Units/1 ML SDV ONE ×2 (06:47→07:01)
[2018-02-22] MEDS ORDERED: cefOXitin 1 GM Vial ONE (06:52)
[2018-02-22] MEDS ORDERED: ePHEDrine 50 MG/ML SDV ONE (07:01)
[2018-02-22] MEDS ORDERED: Phenylephrine 1% 10 MG/ML SDV ONE (07:47)
[2018-02-22] MEDS ORDERED: Ondansetron 4 MG/2 ML SDV ONE (08:12)
[2018-02-22] MEDS ORDERED: Lactated Ringers 1,000 ML ONE (08:27)
[2018-02-22] MEDS ORDERED: fentaNYL 100 MCG/2 ML SDV IVPUSH ONE (09:29)
[2018-02-22] MEDS ORDERED: fentaNYL 100 MCG/2 ML SDV ONE (09:30)
[2018-02-22] MEDS ORDERED: Naloxone 0.4 MG/ML SDV IV PRN (10:08)
[2018-02-22] MEDS ORDERED: Ondansetron 4 MG/2 ML SDV IV PRN (10:10)
[2018-02-22] MEDS ORDERED: Dextrose 5%-Lactated Ringers 1,000 ML IV SCH (10:15)
[2018-02-22] MEDS: HYDROmorphone/Normal Saline 15 MG/30 ML PCA IV PRN (10:15)
[2018-02-22] MEDS ORDERED: hydrOXYzine HCl 100 MG/2 ML SDV IM PRN (11:50)
[2018-02-22] MEDS ORDERED: Meperidine PF 100 MG/ML Syringe IM ONE (12:10)
[2018-02-22] MEDS ORDERED: diphenhydrAMINE 50 MG/ML SDV IVPUSH PRN (13:53)
[2018-02-22] MEDS ORDERED: diphenhydrAMINE 25 MG Cap PO PRN (13:55)
[2018-02-22] MEDS: cefOXitin 2 GM in Sodium Chloride 0.9% 50 ML IV SCH ×2 (14:12→18:10)
[2018-02-23] MEDS: cefOXitin 2 GM in Sodium Chloride 0.9% 50 ML IV SCH ×4 (00:25→17:41)
[2018-02-23] MEDS: HYDROmorphone/Normal Saline 15 MG/30 ML PCA IV PRN (00:25)
[2018-02-23] MEDS: Acetaminophen/HYDROcodone 325-5 MG Tab PO PRN ×4 (07:45→21:04)
[2018-02-23] MEDS: Prenatal Multivitamin with Calcium/Folic Acid/Iron Tab PO SCH (08:31)
[2018-02-23] MEDS: Docusate Sodium 100 MG Cap PO SCH ×2 (08:31→21:16)
[2018-02-23] MEDS: Ibuprofen 600 MG Tab PO SCH ×3 (08:31→21:16)
--- NOTE | 2018-02-23 10:50 | PCM.SURGPN ---
- General Info Date of Service: 02/23/18 Date of Surgery/Procedure: 02/22/18 POD#: 1 Post-Op Diagnosis: Repeat Section Functional Status: Reports: Pain Controlled (with [place] and Ibuprofen), Tolerating Diet, Ambulating, Urinating, Incentive Spirometry - Review of Systems General: Reports: No Symptoms HEENT: Reports: No Symptoms Pulmonary: Reports: No Symptoms Cardiovascular: Reports: No Symptoms Gastrointestinal: Reports: Abdominal Pain, Fl[place] Genitourinary: Reports: No Symptoms Musculoskeletal: Reports: No Symptoms Skin: Reports: Pruritis (legs) Neurological: Reports: No Symptoms Psychiatric: Reports: No Symptoms Systems Review Comment:: Patient reports that she is feeling well today. She continues to have abdominal/ incisional pain that is controlled with ordered pain medications. She states that she has been up ambulating and tolerating that well. She has been experiencing pruritus that has been controlled with prn benadryl. She is working on with baby and believes this is going well. She denied having any concerns. - Patient Data Vitals - Most Recent: Last Vital Signs Temp 37.7 C 02/23/18 08:39 Pulse 102 H 02/23/18 08:39 Resp 16 02/23/18 08:39 BP 117/6 L 02/23/18 08:39 Pulse Ox 95 02/23/18 08:39 Weight - Most Recent: 78.018 kg I&O - Last 24 Hours: Intake & Output 02/22/18 02/23/18 02/23/18 22:59 06:59 14:59 Intake Total 2289 2396 2 Output Total 1575 2300 1200 Balance 714 96 -1198 Lab Results Last 24 Hrs: Laboratory Results - last 24 hr 02/22/18 02/23/18 Range/Units 12:30 04:50 WBC 12.0 H (4.5-11.0) K/uL RBC 3.61 (3.30-5.50) M/uL Hgb 10.4 L (12.0-15.0) g/dL Hct 31.7 L (36.0-48.0) % MCV 88 (80-98) fL MCH 29 (27-31) pg MCHC 33 (32-36) % Plt Count 105 L (150-400) K/uL Blood Type O NEGATIVE Gel Antibody Screen Negative Rhogam Indicated Yes, baby rh pos Med Orders - Current: Current Medications Hydrocodone Bitart/Acetaminophen ([place] 325-5 Mg) 1 - 2 tab PO Q4H PRN PRN Reason: Pain Last Admin: 02/23/18 07:45 Dose: 2 tab Diphenhydramine HCl (Benadryl) 25 - 50 mg IVPUSH Q4H PRN PRN Reason: Itching Last Admin: 02/22/18 14:07 Dose: 50 mg Diphenhydramine HCl (Benadryl) 25 - 50 mg PO Q4H PRN PRN Reason: Itching Docusate Sodium (Colace) 100 mg PO BID [facility] Last Admin: 02/23/18 08:31 Dose: 100 mg Hydroxyzine HCl (Vistaril) 100 mg IM Q4H PRN PRN Reason: Pain Last Admin: 02/22/18 12:19 Dose: 100 mg Cefoxitin Sodium 2 gm/ Sodium (Chloride) 50 mls @ 100 mls/hr IV Q6H [facility] Last Admin: 02/23/18 06:10 Dose: 100 mls/hr Dextrose/Lactated Ringer's (Dextrose 5%-Lactated Ringers) 1,000 mls @ 175 mls/ hr IV ASDIRECTED [facility] Last Admin: 02/22/18 18:17 Dose: 175 mls/hr Ibuprofen (Motrin) 600 mg PO Q6H [facility] Last Admin: 02/23/18 08:31 Dose: 600 mg Ondansetron HCl (Zofran) 4 mg IV Q4H PRN PRN Reason: N/V Prenat Multivit/Hunt/Iron/Folic Ac ( Plus Iron) 1 each PO DAILY [facility] Last Admin: 02/23/18 08:31 Dose: 1 each Sertraline HCl (Zoloft) 100 mg PO BEDTIME [facility]INIC Discontinued Medications Cefoxitin Sodium (Mefoxin) Confirm Administered Dose 2 gm .ROUTE .STK-MED ONE Stop: 02/22/18 06:48 Cefoxitin Sodium (Mefoxin) Confirm Administered Dose 1 gm .ROUTE .STK-MED ONE Stop: 02/22/18 06:53 Last Admin: 02/22/18 08:20 Dose: 1 gm Cefoxitin Sodium (Mefoxin) Confirm Administered Dose 2 gm .ROUTE .STK-MED ONE Stop: 02/22/18 07:02 Ephedrine Sulfate (Ephedrine Sulfate) Confirm Administered Dose 50 mg .ROUTE .STK-MED ONE Stop: 02/22/18 07:02 Fentanyl (Sublimaze) 100 mcg IVPUSH ONETIME ONE Stop: 02/22/18 09:30 Last Admin: 02/22/18 09:34 Dose: 100 mcg Fentanyl (Sublimaze) Confirm Administered Dose 100 mcg .ROUTE .STK-MED ONE Stop: 02/22/18 09:31 Last Admin: 02/22/18 12:01 Dose: Not Given Hydromorphone HCl (Dilaudid Computer Teacher 15 Mg In Ns 30 Ml) 0 mg IV ASDIRECTED PRN; Protocol PRN Reason: SPA DIRECTOR PAIN CONTROL Last Admin: 02/23/18 00:25 Dose: 15 mg Lactated Ringer's (Ringers, Lactated) 1,000 mls @ 250 mls/hr IV ASDIRECTED DOMINIC Last Admin: 02/22/18 06:35 Dose: 250 mls/hr Lactated Ringer's (Ringers, Lactated) Confirm Administered Dose 1,000 mls @ as directed .ROUTE .ST-MED ONE Stop: 02/22/18 08:28 Meperidine HCl (Demerol) 100 mg IM ONETIME ONE Stop: 02/22/18 12:11 Last Admin: 02/22/18 12:22 Dose: 100 mg Naloxone HCl (Narcan) 0.1 mg IV ASDIRECTED PRN PRN Reason: decreased respiratory rate Ondansetron HCl (Zofran) Confirm Administered Dose 4 mg .ROUTE .STK-MED ONE Stop: 02/22/18 08:13 Oxytocin (Pitocin) Confirm Administered Dose 10 unit .ROUTE .STK-MED ONE Stop: 02/22/18 06:48 Last Admin: 02/22/18 08:10 Dose: 10 unit Oxytocin (Pitocin) Confirm Administered Dose 20 unit .ROUTE .STK-MED ONE Stop: 02/22/18 07:02 Phenylephrine HCl ([place]-Synephrine) Confirm Administered Dose 10 mg .ROUTE .STK- MED ONE Stop: 02/22/18 07:48 - Exam Wound/Incisions: Dressing Dry and Intact General: Alert, Oriented, Cooperative, No Acute Distress HEENT: Pupils Equal, Pupils Reactive Neck: Supple, Trachea Midline Lungs: Clear to Auscultation, Normal Respiratory Effort Cardiovascular: Regular Rate, Regular Rhythm GI/Abdominal Exam: Normal Bowel Sounds, Soft, Tender Extremities: Normal Inspection, Pedal Edema (trace bilaterally) Skin: Warm, Dry, Intact Neurological: No New Focal Deficit Psy/Mental Status: Alert, Normal Affect, Normal Mood - Problem List & Annotations (1) delivery delivered SNOMED Code(s): 633986038 Code(s): O82 - ENCOUNTER FOR DELIVERY WITHOUT INDICATION Status: Acute Current Visit: Yes - Problem List Review Problem List Initiated/Reviewed/Updated: Yes - My Orders Last 24 Hours: Active Orders 24 hr Category Date Time Status Ambulate [RC] QID Care 02/22/18 10:02 Active Colmenares Catheter Insertion [Insert Urinary Catheter] [OM. Care 02/22/18 10:15 Ordered PC] Q24H Incentive Spirometry [RT Incentive Spirometry] [RC] Care 02/22/18 10:03 Active Q1HWA Intake and Output [RC] QSHIFT Care 02/22/18 10:08 Active May Shower [RC] ASDIRECTED Care 02/23/18 07:18 Active Turn, Cough, Deep Breathe [RC] Q1HWA Care 02/22/18 10:03 Active Up to Chair [RC] QID Care 02/22/18 10:02 Active Advance Diet Instructions [DIET] Diet 02/23/18 Breakfast Active SCREEN [BBK] Routine Lab 02/22/18 12:30 Results RH IMMUNE GLOBULIN [BBK] Routine Lab 02/22/18 12:30 Results RHIG WORKUP, [BBK] Routine Lab 02/22/18 12:30 Results TYPE AND SCREEN [BBK] Routine Lab 02/22/18 12:30 Results Acetaminophen/HYDROcodone [[place] 325-5 MG] Med 02/23/18 07:15 Active 1 - 2 tab PO Q4H PRN Dextrose 5%-Lactated Ringers 1,000 ml Med 02/22/18 10:15 Active IV ASDIRECTED Docusate Sodium [Colace] Med 02/23/18 09:00 Active 100 mg PO BID Ibuprofen [Motrin] Med 02/23/18 08:00 Active 600 mg PO Q6H Ondansetron [Zofran] Med 02/22/18 10:10 Active 4 mg IV Q4H PRN Vit with Ca/FA/Iron [ Plus Iron] Med 02/23/18 09:00 Active 1 each PO DAILY Sertraline [Zoloft] Med 02/23/18 21:00 Active 100 mg PO BEDTIME cefOXitin [Mefoxin] 2 gm Med 02/22/18 12:30 Active Sodium Chloride 0.9% [Normal Saline] 50 ml IV Q6H diphenhydrAMINE [Benadryl] Med 02/22/18 13:53 Active 25 - 50 mg IVPUSH Q4H PRN diphenhydrAMINE [Benadryl] Med 02/22/18 13:55 Active 25 - 50 mg PO Q4H PRN hydrOXYzine HCl [Vistaril] Med 02/22/18 11:50 Active 100 mg IM Q4H PRN Convert IV to Saline Lock [OM.PC] Routine Oth 02/23/18 07:16 Ordered Medication Orders Hydrocodone Bitart/Acetaminophen ([place] 325-5 Mg) 1 - 2 tab PO Q4H PRN PRN Reason: Pain Last Admin: 02/23/18 07:45 Dose: 2 tab Diphenhydramine HCl (Benadryl) 25 - 50 mg IVPUSH Q4H PRN PRN Reason: Itching Last Admin: 02/22/18 14:07 Dose: 50 mg Diphenhydramine HCl (Benadryl) 25 - 50 mg PO Q4H PRN PRN Reason: Itching Docusate Sodium (Colace) 100 mg PO BID [facility] Last Admin: 02/23/18 08:31 Dose: 100 mg Hydroxyzine HCl (Vistaril) 100 mg IM Q4H PRN PRN Reason: Pain Last Admin: 02/22/18 12:19 Dose: 100 mg Cefoxitin Sodium 2 gm/ Sodium (Chloride) 50 mls @ 100 mls/hr IV Q6H [facility] Last Admin: 02/23/18 06:10 Dose: 100 mls/hr Admin: 02/23/18 00:25 Dose: 100 mls/hr Admin: 02/22/18 18:10 Dose: 100 mls/hr Admin: 02/22/18 14:12 Dose: 100 mls/hr Dextrose/Lactated Ringer's (Dextrose 5%-Lactated Ringers) 1,000 mls @ 175 mls/ hr IV ASDIRECTED [facility] Last Admin: 02/22/18 18:17 Dose: 175 mls/hr Ibuprofen (Motrin) 600 mg PO Q6H [facility] Last Admin: 02/23/18 08:31 Dose: 600 mg Ondansetron HCl (Zofran) 4 mg IV Q4H PRN PRN Reason: N/V Prenat Multivit/Hunt/Iron/Folic Ac ( Plus Iron) 1 each PO DAILY [facility] Last Admin: 02/23/18 08:31 Dose: 1 each Sertraline HCl (Zoloft) 100 mg PO BEDTIME [facility] - Assessment Assessment (Free Text/Narrative):: S/p repeat section - Plan Plan (Free Text/Narrative):: -Colmenares out today. -Convert IV to saline lock. -May shower today. -Advance diet as tolerated. -Ibuprofen 600 mg PO q 6 hours for pain. -[place] 325-5 mg 1-2 tab PO q 4 hours prn for pain. -Sertraline 100 mg PO at bedtime. -Colace 100 mg PO BID. - vitamin with Ca/FA/iron.
[2018-02-23] MEDS ORDERED: Magnesium Hydroxide 400 MG/5 ML Susp 30 ML Cup PO PRN (15:17)
[2018-02-23] MEDS ORDERED: Sertraline 50 MG Tab PO SCH (21:00)
[2018-02-24] MEDS: cefOXitin 2 GM in Sodium Chloride 0.9% 50 ML IV SCH (00:51)
[2018-02-24] MEDS: Acetaminophen/HYDROcodone 325-5 MG Tab PO PRN ×3 (00:58→10:58)
[2018-02-24] MEDS: Ibuprofen 600 MG Tab PO SCH ×2 (01:00→10:43)
[2018-02-24 08:48] VITALS: BP 116/63
[2018-02-24] MEDS: Docusate Sodium 100 MG Cap PO SCH (10:43)
[2018-02-24] MEDS: Prenatal Multivitamin with Calcium/Folic Acid/Iron Tab PO SCH (10:44)
--- NOTE | 2018-02-25 08:46 | DISCH ---
ADMISSION DIAGNOSES: 1. Term . 2. Repeat . 3. Dysthymic disorder. 4. Generalized anxiety disorder. 5. Cannabis dependence. 6. Major depressive disorder, recurrent. DISCHARGE DIAGNOSIS: Repeat with delivery of a viable baby, male infant, for term and history of previous . HISTORY: Marquita Gallardo is a 22-year-old female, who had a repeat approximately 11 months ago. After preoperative evaluation, discussion of possible risks and possible complications, she wished to proceed with surgical procedure. HOSPITAL COURSE: Marquita had her surgery on 02/22/2018. She had no postop complications. On postop day #1, she was started on a regular diet, oral pain medication. On postop day 2, activity was good, pain managed, vital signs stable, oral intake adequate, and she was able to be discharged to home. PHYSICAL EXAMINATION: GENERAL: Marquita is a 22-year-old female. Alert and orientated. VITAL SIGNS: Height is 5 feet 2.99 inches, weight of 172 pounds. TPR 96.9, 94, 16. Blood pressure 111/63. HEENT: Negative. NECK: Supple. HEART: Regular rate and rhythm. LUNGS: Clear. ABDOMEN: Aquacel dressings on. It will be removed prior to discharge, and Steri-Strips will be replaced if needed. EXTREMITIES: Without peripheral edema and no calf tenderness. DISPOSITION: Discharged to home. CONDITION: Stable and improving. FOLLOWUP APPOINTMENT: Yenni Ramachandran PA-C, on 03/03/2018 at 1:00 p.m. To follow up with Ani Cabrera in 6 weeks. DISCHARGE MEDICATIONS: New prescriptions: 1. [place] 5/325 mg 1 to 2 oral q.4 hours p.r.n. pain, #40. 2. Colace 100 mg oral twice daily, #100. 3. Ibuprofen 600 mg q.6 hours p.r.n. for pain, #100. She is to resume her home medications of vitamins 1 daily and sertraline 1 tablet at bedtime. DISCHARGE DIET: Usual diet as tolerated. Drink 8 to 10 glasses of water a day. ACTIVITY: No lifting greater than 10 pounds or baby in car seat for 6 weeks[address] Driving, do not drive on pain medication. Shower/bathing, may shower. No tub baths or swimming. DISCHARGE INSTRUCTIONS: Notify provider if any fever, pain, swelling, redness, drainage, nausea, or vomiting. Wound incision care, keep site clean and dry. Use incentive spirometer 10 times every hour while awake.
--- NOTE | 2018-03-03 16:43 | OR ---
DATE OF PROCEDURE: 02/22/2018 PREOPERATIVE DIAGNOSIS: Term with history of previous section. POSTOPERATIVE DIAGNOSIS: Term with history of previous section. OPERATIVE PROCEDURE: Repeat section ([id number]). ANESTHESIA: Spinal. ASSISTANTS: 1. Imelda Cabrera CNM. 2. KIT Sears. 3. KIT Hurtado. INDICATION FOR PROCEDURE: This is a 22-year-old presenting with term with history of previous section and plan to proceed with a scheduled repeat section. The potential risks of procedure including bleeding, infection, injury to mother and/or baby were all reviewed, and the patient wishes to proceed. DETAILS OF PROCEDURE: The patient was taken to the operating room and placed in the supine position after a spinal anesthetic had been placed, and a roll positioned underneath the right hip. Colmenares catheter was inserted and the abdomen was prepped and draped. The previous transverse Pfannenstiel incision was made and carried down through the skin and subcutaneous tissue and through the rectus sheath. Subrectus sheath flaps were then raised superiorly and inferiorly, and the midline peritoneum divided and peritoneal reflection of bladder on the uterus was then divided and reflected downward. A transverse uterine incision was made and a viable male was delivered through a vertex presentation. The cord was clamped and cut and routine care given off the field per Ani Cabrera CNM. The patient was given IV intrauterine oxytocin and IV cefoxitin. Good uterine contractions were noted and the placenta was delivered without difficulty. Uterus was then closed with 2 layers of 2-0 Vicryl stitch, which was also used to approximate the bladder up over suture line. At that point, the uterus was placed back into the abdomen and pelvis. The midline musculature and peritoneum were approximated with #2 Vicryl stitch as was used for the anterior rectus sheath. Subcutaneous tissue was then irrigated with antibiotic-containing saline solution and the subcutaneous tissue was approximated with some 3-0 Vicryl stitch and the skin with a 4-0 Vicryl subcuticular stitch. Dressing was applied. The patient was taken to the recovery room in satisfactory condition. Lokesh Salgado MD /[id number]
== END 2018-02-24 11:30 | disposition home or self-care (01) | DRG 765 ==
LOC: JP.SDS 05:29 → JP.MS 08:09
PROVIDERS: ADMIT Nurse Practitioner Family; ATTEND Surgery
PROC: 10D00Z1 Extraction of Products of Conception, Low, Open Approach (ICD-10-PCS; principal; 2018-02-22)
PROC: 3E0334Z Introduction of Serum, Toxoid and Vaccine into Peripheral Vein, Percutaneous Approach (ICD-10-PCS; 2018-02-22)
DX: O34.211 Maternal care for low transverse scar from previous cesarean delivery (principal); O99.324 Drug use complicating childbirth; N85.8 Other specified noninflammatory disorders of uterus; O99.334 Smoking (tobacco) complicating childbirth; F17.210 Nicotine dependence, cigarettes, uncomplicated; Z3A.00 Weeks of gestation of pregnancy not specified; Z37.0 Single live birth; O36.0990 Maternal care for other rhesus isoimmunization, unspecified trimester, not applicable or unspecified; O99.344 Other mental disorders complicating childbirth; O76 Abnormality in fetal heart rate and rhythm complicating labor and delivery; F41.9 Anxiety disorder, unspecified; F12.20 Cannabis dependence, uncomplicated; F32.9 Major depressive disorder, single episode, unspecified
CPT/HCPCS: 36415; 59409; 80305; 85027; 85460; 86850; 86900; 86901; 88307; 94762; A9270-GY; J0694; J1170; J1200; J2175; J2370; J2405; J2590; J2790; J3010; J3410; J7042; J7050; J7120

== ENCOUNTER 2019-12-10 17:23 | Emergency (ER) | payer MEDICAID ==
[2019-12-10 18:00] VITALS: BP 108/64; PULSE 53
[2019-12-10] MEDS ORDERED: Ibuprofen 600 MG Tab PO ONE (18:18)
--- NOTE | 2019-12-10 18:18 | EDM.PDOC ---
ED HPI GENERAL MEDICAL PROBLEM - General Chief Complaint: Upper Extremity Injury/Pain Stated Complaint: RIGHT HAND PUNCHED WALL Time Seen by Provider: 12/10/19 18:13 Source of Information: Reports: Patient, RN History Limitations: Reports: No Limitations - History of Present Illness INITIAL COMMENTS - FREE TEXT/NARRATIVE: Punched a wall yesterday. Here now for evaluation of hand pain. Pain is increased with movement. Has bruising today. 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 MICHELLE-03/12/2017 Neurological History: Reports: Head Trauma Psychiatric History: Reports: Anxiety, Depression - Infectious Disease History Infectious Disease History: Reports: Chicken Pox - Past Surgical History Female Surgical History: Reports: Section Dermatological Surgical History: Reports: None Social & Family History - Family History HEENT: Reports: Impaired Vision Cardiac: Reports: [place] Neurological: Reports: CVA, Dementia, Seizure Psychiatric: Reports: Anxiety, Depression, Other (See Below) Other Psychiatric Family History: substance abuse Oncologic: Reports: Lung - Tobacco Use Smoking Status *Q: Current Every Day Smoker Years of Tobacco use: 10 Packs/Tins Daily: 1 - Caffeine Use Caffeine Use: Reports: Soda - Recreational Drug Use Recreational Drug Type: Reports: Marijuana/Hashish Recreational Drug Use Frequency: Daily Review of Systems - Review of Systems Review Of Systems: Comprehensive ROS is negative, except as noted in HPI. Musculoskeletal: Reports: Hand Pain (right) Skin: Reports: Bruising (R lateral hand) ED EXAM, GENERAL - Physical Exam Exam: See Below Exam Limited By: No Limitations General Appearance: Alert, WD/WN, No Apparent Distress Extremities: Normal Range of Motion, Pedal Edema (slightly puffy to the lateral R hand area. ). No: Normal Inspection, Non-Tender, No Pedal Edema, Limited Range of Motion, Increased Warmth, Redness Neurological: Alert, Oriented, CN II-XII Intact, Normal Cognition, No Motor/ Sensory Deficits Psychiatric: Normal Affect, Normal Mood Skin Exam: Warm, Dry, Intact, No Rash, Ecchymosis (R lateral hand). No: Erythema, Increased Warmth, Lymphangitis, Petechiae, Rash, Wound/Incision Course - Vital Signs Text/Narrative:: splint applied by RN. Short arm, gutter splint with sling Last Recorded V/S: Last Vital Signs Temp 36.8 C 12/10/19 17:57 Pulse 53 L 12/10/19 17:57 Resp 16 12/10/19 17:57 BP 108/64 12/10/19 17:57 Pulse Ox 97 12/10/19 17:57 - Orders/Labs/Meds Orders: Active Orders 24 hr Category Date Time Status DME for Discharge [COMM] Routine Oth 12/10/19 19:20 Ordered Meds: Medications Discontinued Medications Generic Name Dose Route Start Last Admin Trade Name Freq PRN Reason Stop Dose Admin Ibuprofen 600 mg 12/10/19 18:18 12/10/19 18:28 Motrin PO 12/10/19 18:19 600 mg ONETIME ONE Administration - Radiology Interpretation Free Text/Narrative:: R hand X-ray-Fx of base of R 5th metacarpal Departure - Departure Time of Disposition: 19:45 Disposition: Home, Self-Care 01 Condition: Fair Clinical Impression: Right hand fracture Qualifiers: Encounter type: initial encounter Fracture type: closed Qualified Code(s): S62.91XA - Unspecified fracture of right wrist and hand, initial encounter for closed fracture - Discharge Information *PRESCRIPTION DRUG MONITORING PROGRAM REVIEWED*: No *COPY OF PRESCRIPTION DRUG MONITORING REPORT IN PATIENT SHERWIN: No Referrals: PCP,None [Primary Care Provider] - Forms: ED Department Discharge Additional Instructions: Wear splint at all times. F/U with orthopedics this next week, someone will call you early in the week for an appt. Keep hand elevated. Use acetaminophen or ibuprofen as needed for pain relief. Sepsis Event Note - Evaluation Sepsis Screening Result: No Definite Risk - Focused Exam Vital Signs: Vital Signs Temp Pulse Resp BP Pulse Ox 12/10/19 17:57 36.8 C 53 L 16 108/64 97 12/10/19 17:43 36.8 C 53 L 16 108/64 97 Date Exam was Performed: 12/10/19 Time Exam was Performed: 19:26 - My Orders Last 24 Hours: My Active Orders 12/10/19 19:20 DME for Discharge [COMM] Routine - Assessment/Plan Last 24 Hours: My Active Orders 12/10/19 19:20 DME for Discharge [COMM] Routine
--- NOTE | 2019-12-10 19:08 | CRLCR ---
Indication: Pain. Trauma. Technique: Three views of the right hand. Comparison: None Findings: A fracture of the base of the 5th metacarpal is identified laterally. The joint spaces are well maintained. No other fractures are identified. Impression: Fracture the base of the 5th metacarpal Dictated by Chayo Galvez MD @ Dec 10 2019 7:05PM Signed by Dr. Chayo Galvez @ Dec 10 2019 7:05PM
== END 2019-12-10 19:51 | disposition home or self-care (01) ==
LOC: JP.ED 17:23
DX: S62.91XA Unspecified fracture of right hand, initial encounter for closed fracture (principal); F17.210 Nicotine dependence, cigarettes, uncomplicated; W22.01XA Walked into wall, initial encounter
CPT/HCPCS: 29125; 73130; 99282; 99283; A9270

== ENCOUNTER 2019-12-14 14:39 | Day surgery (SDC) | payer MEDICAID ==
[~2019-12-14 14:39] MED LIST: Bupivacaine 0.5% 50 ML MDV ONE; Bupivacaine 0.5%/EPINEPHrine 1:200,000 50 ML MDV ONE; Lidocaine 0.5% 50 ML SDV ONE; Midazolam 1 MG/ML 2 ML SDV ONE; Nozin Nasal Sanitizer NASBOTH ONE; Propofol 200 MG/20 ML SDV ONE; ceFAZolin 1 GM in Premix Bag 1 BAG IV ONE; fentaNYL 100 MCG/2 ML SDV ONE
[2019-12-14] MEDS ORDERED: Lactated Ringers 1,000 ML IV SCH (15:00)
[2019-12-14] MEDS ORDERED: ceFAZolin 1 GM in Premix Bag 1 BAG IV ONE (15:00)
[2019-12-14] MEDS ORDERED: Ketorolac 60 MG/2 ML SDV ONE (16:01)
[2019-12-14] MEDS ORDERED: Propofol 200 MG/20 ML SDV ONE (16:05)
[2019-12-14 17:10] VITALS: BP 121/78; PULSE 75
--- NOTE | 2019-12-19 22:31 | OR ---
DATE OF PROCEDURE: 12/14/2019 SURGEON: Souleymane Madison MD PREOPERATIVE DIAGNOSIS: Displaced proximal 5th metacarpal fracture, intra- articular. POSTOPERATIVE DIAGNOSIS: Displaced proximal 5th metacarpal fracture, intra- articular. PROCEDURE: Closed reduction and percutaneous pinning, right 5th metacarpal. ANESTHESIA: Sulema block. INDICATIONS: Marquita is a 24-year-old female who sustained a fracture of her right 5th metacarpal. X-rays reveal a fracture of the proximal metacarpal, intra- articular with greater than 2 mm of displacement and slight proximal migration of the main metacarpal fragment. She now presents for closed reduction and percutaneous pinning. Risks, benefits, and potential complications were discussed. DESCRIPTION OF PROCEDURE: After adequate regional anesthesia was obtained, right hand and arm were prepped and draped in a sterile fashion. Under fluoroscopic guidance, traction was placed on the 5th finger and manipulation directly over the base of the metacarpal was utilized to reduce the fracture. This was held in reduced position and a 0.045 K-wire was then placed under fluoroscopic guidance through the main portion of the metacarpal into the fragment. A 2nd K-wire was then placed anchoring this into the 4th metacarpal. Final position was checked on multiple images; AP, lateral, and oblique. K-wires were then cut outside the skin and bent. Pin sites were infiltrated with Marcaine as well as the fracture site. A well-padded ulnar gutter splint was then applied and held until the plaster hardened. The patient tolerated the procedure very well. There were no complications. Taken from the operating room in a stable condition. Souleymane Madison MD /[id number] MTDD
== END 2019-12-14 17:30 | disposition home or self-care (01) ==
LOC: JP.SDS 14:39
PROVIDERS: ATTEND Specialist
DX: S62.316A Displaced fracture of base of fifth metacarpal bone, right hand, initial encounter for closed fracture (principal); F17.200 Nicotine dependence, unspecified, uncomplicated; X58.XXXA Exposure to other specified factors, initial encounter
CPT/HCPCS: 36415; 76000; 80048; 81025; 85027; J1885; J2001; J2250; J2704; J3010; J3490; J7120

== ENCOUNTER 2020-02-19 13:48 | Emergency (ER) | payer SELFPAY ==
--- NOTE | 2020-02-19 14:23 | EDM.PDOC ---
ED HPI GENERAL MEDICAL PROBLEM - General Chief Complaint: Lower Extremity Injury/Pain Stated Complaint: PAIN IN RT FT AND LEFT TOE Time Seen by Provider: 02/19/20 14:10 Source of Information: Reports: Patient History Limitations: Reports: No Limitations - History of Present Illness INITIAL COMMENTS - FREE TEXT/NARRATIVE: 24-year-old female with bilateral foot pain secondary to trauma. Yesterday the large toe on her left foot got stuck underneath a large wooden door, and the only way to get it removed was to kicked the door hard with her right foot. Today her large toe on her left foot and several toes on her right foot are all sore especially with weightbearing. She wants them checked. Onset: Sudden Duration: Hour(s): (But 12 hours ago) Location: Reports: Lower Extremity, Left, Lower Extremity, Right Associated Symptoms: Reports: No Other Symptoms toes r and l Pain Score (Numeric/FACES): 1 - Related Data Allergies Allergy/AdvReac Type Severity Reaction Status Date / Time No Known Allergies Allergy Verified 02/19/20 14:01 Home Meds: Home Meds Acetaminophen [Tylenol Extra Strength] 1 - 2 tab PO Q4HR PRN 12/29/19 [History] Past Medical History HEENT History: Reports: Impaired Vision Other HEENT History: wears glasses Cardiovascular History: Reports: None Respiratory History: Reports: None Gastrointestinal History: Reports: None Genitourinary History: Reports: None 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: , Other (See Below) Other MASTER DATA ANALYST History: cyst on ovary Musculoskeletal History: Reports: Fracture, Other (See Below) Other Musculoskeletal History: R hand Fx 5th metacarpal pinning 12/14/19 Neurological History: Reports: Head Trauma Psychiatric History: Reports: Anxiety, Depression Endocrine/Metabolic History: Reports: None Hematologic History: Reports: None Immunologic History: Reports: None Oncologic (Cancer) History: Reports: None Dermatologic History: Reports: None - Infectious Disease History Infectious Disease History: Reports: Chicken Pox - Past Surgical History Head Surgeries/Procedures: Reports: None HEENT Surgical History: Reports: None Female Surgical History: Reports: Section Musculoskeletal Surgical History: Reports: None Dermatological Surgical History: Reports: None Social & Family History - Family History Family Medical History: Noncontributory HEENT: Reports: Impaired Vision Cardiac: Reports: [place] Neurological: Reports: CVA, Dementia, Seizure Psychiatric: Reports: Anxiety, Depression, Other (See Below) Other Psychiatric Family History: substance abuse Oncologic: Reports: Lung - Tobacco Use Smoking Status *Q: Current Every Day Smoker Years of Tobacco use: 11 Packs/Tins Daily: 1 - Caffeine Use Caffeine Use: Reports: Coffee, Energy Drinks, Soda, Tea - Recreational Drug Use Recreational Drug Use: No Review of Systems - Review of Systems Review Of Systems: See Below Constitutional: Denies: Fever Respiratory: Denies: Shortness of Breath Cardiovascular: Denies: Chest Pain Skin: Reports: Bruising (Some bruising around the great toe of the left foot, no abnormalities on the right foot) Neurological: Reports: Paresthesia (She has some paresthesias in the right hand from her recent surgery but no other complaints) Psychiatric: Reports: No Symptoms ED EXAM, GENERAL - Physical Exam Exam: See Below Exam Limited By: No Limitations General Appearance: Alert, No Apparent Distress Respiratory/Chest: No Respiratory Distress, Lungs Clear Extremities: Other (Patient is tender to palpation around the MP and IP joints of the great toe on the left side with some bruising but no deformity. She is also tender over the MP joints of the second third and fourth toe of the right foot) Neurological: Alert, Oriented Psychiatric: Normal Affect, Normal Mood Skin Exam: Warm, Dry, Other (Some bruising is present around the left great toe especially the MP joint) Course - Vital Signs Last Recorded V/S: Last Vital Signs Temp 98.3 F 02/19/20 13:59 Pulse 98 02/19/20 13:59 Resp 16 02/19/20 13:59 BP 111/71 02/19/20 13:59 Pulse Ox 98 02/19/20 13:59 - Orders/Labs/Meds Orders: Active Orders 24 hr Category Date Time Status Foot Comp Min 3V Lt [CR] Stat Exams 02/19/20 14:19 Taken Foot Comp Min 3V Rt [CR] Stat Exams 02/19/20 14:19 Taken - Re-Assessments/Exams Free Text/Narrative Re-Assessment/Exam: 02/19/20 14:23 X-rays of both feet were taken. 02/19/20 14:49 X-rays were normal, patient was encouraged to increase activity as tolerated. Departure - Departure Time of Disposition: 15:02 Disposition: Home, Self-Care 01 Clinical Impression: Contusion of foot, left Qualifiers: Encounter type: initial encounter Qualified Code(s): S90.32XA - Contusion of left foot, initial encounter Contusion of right foot Qualifiers: Encounter type: initial encounter Qualified Code(s): S90.31XA - Contusion of right foot, initial encounter - Discharge Information Instructions: Foot Contusion, [id number] Referrals: PCP,None [Primary Care Provider] - Forms: ED Department Discharge Care Plan Goals: Increase activity as tolerated, recheck in 5 to 7 days if not improving satisfactorily. Elevation while not active and regular ibuprofen may be helpful. Sepsis Event Note - Focused Exam Vital Signs: Vital Signs Temp Pulse Resp BP Pulse Ox 02/19/20 13:59 98.3 F 98 16 111/71 98 Date Exam was Performed: 02/19/20 Time Exam was Performed: 16:04 - My Orders Last 24 Hours: My Active Orders 02/19/20 14:19 Foot Comp Min 3V Lt [CR] Stat Foot Comp Min 3V Rt [CR] Stat - Assessment/Plan Last 24 Hours: My Active Orders 02/19/20 14:19 Foot Comp Min 3V Lt [CR] Stat Foot Comp Min 3V Rt [CR] Stat
[2020-02-19 14:24] VITALS: BP 111/71; PULSE 98
--- NOTE | 2020-02-20 10:24 | CR ---
Foot Comp Min 3V Rt, Foot Comp Min 3V Lt CLINICAL HISTORY: Trauma, pain FINDINGS: Right foot: There is no fracture, dislocation or osseous lesion. No foreign body seen Left foot: There is no fracture dislocation or osseous lesion seen No foreign body identified IMPRESSION: Negative study of both feet
== END 2020-02-19 15:00 | disposition home or self-care (01) ==
LOC: JP.ED 13:48
DX: S90.32XA Contusion of left foot, initial encounter (principal); S90.31XA Contusion of right foot, initial encounter; F17.210 Nicotine dependence, cigarettes, uncomplicated; W22.8XXA Striking against or struck by other objects, initial encounter
CPT/HCPCS: 73630-26-LT; 73630-26-RT; 73630-LT; 73630-RT; 99282; 99283-25

== ENCOUNTER 2020-03-21 02:39 | Emergency (ER) | payer SELFPAY ==
[2020-03-21 03:09] VITALS: BP 103/68; PULSE 75
--- NOTE | 2020-03-21 03:30 | EDM.PDOCBH ---
ED HPI GENERAL MEDICAL PROBLEM - General Chief Complaint: Behavioral/Psych Stated Complaint: CHEST PAINS Time Seen by Provider: 03/21/20 03:29 Source of Information: Reports: Patient History Limitations: Reports: No Limitations - History of Present Illness INITIAL COMMENTS - FREE TEXT/NARRATIVE: pt has had the sensation that her heart has been skepping a beat. She has pain with deep breathing. She does not have a cough. Pt does not have a fever. It did start some yesterday,. Onset: Gradual Duration: Hour(s): Location: Reports: Chest Associated Symptoms: Reports: Chest Pain, Shortness of Breath left upper chest pain Pain Score (Numeric/FACES): 5 bilateral lower abd pain Pain Score (Numeric/FACES): 5 - Related Data Allergies Allergy/AdvReac Type Severity Reaction Status Date / Time No Known Allergies Allergy Verified 03/21/20 03:05 Home Meds: Home Meds NK [No Known Home Meds] 03/21/20 [History] Past Medical History HEENT History: Reports: Impaired Vision Other HEENT History: wears glasses Cardiovascular History: Reports: None Respiratory History: Reports: None Gastrointestinal History: Reports: None Genitourinary History: Reports: None 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: , Other (See Below) Other C PYTHON DEVELOPER History: cyst on ovary Musculoskeletal History: Reports: Fracture, Other (See Below) Other Musculoskeletal History: R hand Fx 5th metacarpal pinning 12/14/19 Neurological History: Reports: Head Trauma Psychiatric History: Reports: Anxiety, Depression Endocrine/Metabolic History: Reports: None Hematologic History: Reports: None Immunologic History: Reports: None Oncologic (Cancer) History: Reports: None Dermatologic History: Reports: None - Infectious Disease History Infectious Disease History: Reports: Chicken Pox - Past Surgical History Head Surgeries/Procedures: Reports: None HEENT Surgical History: Reports: None Female Surgical History: Reports: Section Musculoskeletal Surgical History: Reports: None Dermatological Surgical History: Reports: None Social & Family History - Family History Family Medical History: Noncontributory HEENT: Reports: Impaired Vision Cardiac: Reports: [place] Neurological: Reports: CVA, Dementia, Seizure Psychiatric: Reports: Anxiety, Depression, Other (See Below) Other Psychiatric Family History: substance abuse Oncologic: Reports: Lung - Tobacco Use Smoking Status *Q: Current Every Day Smoker Years of Tobacco use: 11 Packs/Tins Daily: 1 Second Hand Smoke Exposure: Yes - Caffeine Use Caffeine Use: Reports: Coffee, Soda - Recreational Drug Use Recreational Drug Use: Yes Drug Use in Last 12 Months: Yes Recreational Drug Type: Reports: Marijuana/Hashish Recreational Drug Use Frequency: Daily ED ROS GENERAL - Review of Systems Review Of Systems: See Below Constitutional: Reports: No Symptoms HEENT: Reports: No Symptoms Respiratory: Reports: No Symptoms Cardiovascular: Reports: Other (pt feels like her heart is skepping a beat. ) Endocrine: Reports: No Symptoms GI/Abdominal: Reports: No Symptoms : Reports: No Symptoms Musculoskeletal: Reports: No Symptoms Skin: Reports: No Symptoms Neurological: Reports: No Symptoms Psychiatric: Reports: Anxiety ED EXAM, BEHAVIORAL HEALTH - Physical Exam Exam: See Below Text/Narrative:: pt is a anxious appearing pt who admits to having a severe paanic attack earlier. She now feels like her heart is skepping and her chest is hurting when she takes a deep breath. Exam Limited By: No Limitations General Appearance: Alert, Anxious, Mild Distress Ears: Normal TMs Nose: Normal Inspection Throat/Mouth: Normal Inspection Head: Atraumatic Neck: Normal Inspection Respiratory/Chest: Other (pt is uncomfortable with deep breathing. ) Cardiovascular: Regular Rate, Rhythm GI/Abdominal: Soft, Non-Tender (Female) Exam: Deferred Rectal (Female) Exam: Deferred Back Exam: Normal Inspection Extremities: Normal Inspection Neurological: Alert, Normal Cognition COURSE, BEHAVIORAL HEALTH COMP - Course Vital Signs: Last Vital Signs Temp 36.9 C 03/21/20 03:08 Pulse 75 03/21/20 03:08 Resp 19 03/21/20 03:08 BP 103/68 03/21/20 03:08 Pulse Ox 96 03/21/20 03:08 Orders, Labs, Meds: Active Orders 24 hr Category Date Time Status EKG Documentation Completion [RC] ASDIRECTED Care 03/21/20 03:37 Active Chest 1V Frontal [CR] Stat Exams 03/21/20 03:37 Taken UA W/MICROSCOPIC [URIN] Urgent Lab 03/21/20 03:42 Ordered EKG 12 Lead [EK] Routine Ther 03/21/20 03:37 Ordered Laboratory Tests 03/21/20 03/21/20 03/21/20 Range/Units 03:35 03:35 03:55 WBC 6.7 (4.5-11.0) K/uL RBC 4.32 (3.30-5.50) M/uL Hgb 13.5 D (12.0-15.0) g/dL Hct 40.6 (36.0-48.0) % MCV 94 (80-98) fL MCH 31 (27-31) pg MCHC 33 (32-36) % Plt Count 200 (150-400) K/uL Neut % (Auto) 58 (36-66) % Lymph % (Auto) 31 (24-44) % Kimball % (Auto) 6 (2-6) % Eos % (Auto) 4 (2-4) % Baso % (Auto) 1 (0-1) % Sodium 141 (140-148) mmol/L Potassium 3.6 (3.6-5.2) mmol/L Chloride 106 (100-108) mmol/L Carbon Dioxide 26 (21-32) mmol/L Anion Gap 9.5 (5.0-14.0) mmol/L BUN 15 (7-18) mg/dL Creatinine 0.8 (0.6-1.0) mg/dL Est Cr Clr Drug Dosing 87.24 mL/min Estimated GFR (MDRD) > 60 (>60) Glucose 103 (74-106) mg/dL Calcium 8.7 (8.5-10.1) mg/dL Total Bilirubin 0.5 (0.2-1.0) mg/dL AST 18 (15-37) U/L ALT 28 (12-78) U/L Alkaline Phosphatase 57 (46-116) U/L Troponin I < 0.017 (0.000-0.056) ng/mL Total Protein 6.9 (6.4-8.2) g/dL Albumin 3.8 (3.4-5.0) g/dL Globulin 3.1 (2.3-3.5) g/dL Albumin/Globulin Ratio 1.2 (1.2-2.2) Urine Opiates Screen Negative (NEGATIVE) Ur Oxycodone Screen Negative (NEGATIVE) Urine Methadone Screen Negative (NEGATIVE) Ur Propoxyphene Screen Negative (NEGATIVE) Ur Barbiturates Screen Negative (NEGATIVE) Ur Tricyclics Screen Negative (NEGATIVE) Ur Phencyclidine Scrn Negative (NEGATIVE) Ur Amphetamine Screen Negative (NEGATIVE) U Methamphetamines Scrn Negative (NEGATIVE) Urine MDMA Screen Negative (NEGATIVE) U Benzodiazepines Scrn Negative (NEGATIVE) U Cocaine Metab Screen Negative (NEGATIVE) U Marijuana (THC) Screen Presumptive positive H (NEGATIVE) Medications Discontinued Medications Generic Name Dose Route Start Last Admin Trade Name Freq PRN Reason Stop Dose Admin Lorazepam 0.5 mg 03/21/20 04:08 03/21/20 04:15 Ativan PO 03/21/20 04:09 0.5 mg ONETIME ONE Administration Medical Clearance: 03/21/20 04:23 pt has normal lab work nd she has calmed down. I believe her chest discomfort is from the panic attack. Departure - Departure Time of Disposition: 04:23 Disposition: Home, Self-Care 01 Condition: Fair Clinical Impression: Anxiety, Chest wall pain - Discharge Information Referrals: PCP,None [Primary Care Provider] - Forms: ED Department Discharge Care Plan Goals: try relaxation techniques, encourage deep breathing, ativan .5 q6h prn for anxiety, see regular Dr regarding the anxiety. Sepsis Event Note - Evaluation Sepsis Screening Result: No Definite Risk - Focused Exam Vital Signs: Vital Signs Temp Pulse Resp BP Pulse Ox 03/21/20 03:08 36.9 C 75 19 103/68 96 03/21/20 03:05 36.9 C 75 19 103/68 96 Date Exam was Performed: 03/21/20 Time Exam was Performed: :20 - My Orders Last 24 Hours: My Active Orders 03/21/20 03:37 EKG Documentation Completion [RC] ASDIRECTED Chest 1V Frontal [CR] Stat EKG 12 Lead [EK] Routine 03/21/20 03:42 UA W/MICROSCOPIC [URIN] Urgent - Assessment/Plan Last 24 Hours: My Active Orders 03/21/20 03:37 EKG Documentation Completion [RC] ASDIRECTED Chest 1V Frontal [CR] Stat EKG 12 Lead [EK] Routine 03/21/20 03:42 UA W/MICROSCOPIC [URIN] Urgent
[2020-03-21] MEDS ORDERED: LORazepam 0.5 MG Tab PO ONE (04:08)
--- NOTE | 2020-03-21 04:29 | CRLCR ---
INDICATION: Pain with deep breath TECHNIQUE: Frontal view of the chest. COMPARISON: None FINDINGS: The lungs are clear. There is no sizable pleural effusion or pneumothorax. The cardiomediastinal silhouette is normal. The visualized osseous structures are unremarkable. IMPRESSION: No acute intrathoracic process. Dictated by Omaira Flores MD @ Mar 21 2020 4:25AM Signed by Dr. Omaira Flores @ Mar 21 2020 4:27AM
== END 2020-03-21 04:36 | disposition home or self-care (01) ==
LOC: JP.ED 02:39
DX: F41.9 Anxiety disorder, unspecified (principal); F17.210 Nicotine dependence, cigarettes, uncomplicated
CPT/HCPCS: 36415; 71045; 80053; 80305; 81001; 84484; 85025; 93005; 93010; 99285; A9270

== ENCOUNTER 2020-03-22 22:25 | Emergency (ER) | payer SELFPAY ==
[2020-03-22 22:32] VITALS: BP 120/71; PULSE 97
--- NOTE | 2020-03-22 22:50 | EDM.PDOC ---
ED HPI GENERAL MEDICAL PROBLEM - General Chief Complaint: General Stated Complaint: MEDICAL VIA [facility]TH Time Seen by Provider: 03/22/20 22:31 Source of Information: Reports: Patient, EMS History Limitations: Reports: No Limitations - History of Present Illness INITIAL COMMENTS - FREE TEXT/NARRATIVE: Patient presents by ambulance from home after falling and striking her head against the floor of her bathroom while having an anxiety attack. She was seen in this department less than 24 hours ago because of chest pain and palpitations. Because of her level of anxiety, she received small quantity of lorazepam. She has taken those since being seen last night and instead of waking up this morning, did not awaken until 1700 hrs. today. This evening, approximately 2145 hrs., she was having an anxiety attack and was seated in her bathroom on the floor. Her boyfriend was sitting next to her holding her during her attack. Somehow, his arm released and she fell sideways, striking the right side of her head on a floor ventilation register. There was no loss of consciousness. Because of the episode and the anxiety associated with it, 911 was called. Her blood glucose was in the normal range and her EKG showed sinus rhythm. At this time, she still feels a little sleepy and she has some mild discomfort in her forehead region and at the back of her head and neck region. Onset: Today Onset Date: 03/22/20 Onset Time: 21:45 Location: Reports: Head, Neck Quality: Reports: Dull Severity: Mild Improves with: Reports: None Worsens with: Reports: None Context: Reports: Other (Anxiety attack) Associated Symptoms: Reports: No Other Symptoms - Related Data Allergies Allergy/AdvReac Type Severity Reaction Status Date / Time No Known Allergies Allergy Verified 03/21/20 03:05 Home Meds: Home Meds LORazepam [Ativan] 0.5 mg PO ASDIRECTED PRN 03/22/20 [History] Past Medical History HEENT History: Reports: Impaired Vision Other HEENT History: wears glasses Cardiovascular History: Reports: None Respiratory History: Reports: None Gastrointestinal History: Reports: None Genitourinary History: Reports: None CLERK TO JUSTICE History: Reports: , Other (See Below) Other CLERK TO JUSTICE History: cyst on ovary Musculoskeletal History: Reports: Fracture, Other (See Below) Other Musculoskeletal History: R hand Fx 5th metacarpal pinning 12/14/19 Neurological History: Reports: Head Trauma Psychiatric History: Reports: Anxiety, Depression Endocrine/Metabolic History: Reports: None Hematologic History: Reports: None Immunologic History: Reports: None Oncologic (Cancer) History: Reports: None Dermatologic History: Reports: None - Infectious Disease History Infectious Disease History: Reports: Chicken Pox - Past Surgical History Head Surgeries/Procedures: Reports: None HEENT Surgical History: Reports: None Female Surgical History: Reports: Section Musculoskeletal Surgical History: Reports: None Dermatological Surgical History: Reports: None Social & Family History - Family History Family Medical History: Noncontributory HEENT: Reports: Impaired Vision Cardiac: Reports: [place] Neurological: Reports: CVA, Dementia, Seizure Psychiatric: Reports: Anxiety, Depression, Other (See Below) Other Psychiatric Family History: substance abuse Oncologic: Reports: Lung - Tobacco Use Smoking Status *Q: Heavy Tobacco Smoker Years of Tobacco use: 11 Packs/Tins Daily: 0.7 - Caffeine Use Caffeine Use: Reports: Coffee, Energy Drinks, Soda - Recreational Drug Use Recreational Drug Use: Yes Recreational Drug Type: Reports: Marijuana/Hashish ED ROS GENERAL - Review of Systems Review Of Systems: See Below Constitutional: Reports: No Symptoms HEENT: Reports: No Symptoms Respiratory: Reports: No Symptoms Cardiovascular: Reports: No Symptoms Musculoskeletal: Reports: Neck Pain (Upper left sided neck muscle pain.) Skin: Reports: No Symptoms Neurological: Reports: Headache (Mild pain at site of contusions.) Psychiatric: Reports: Anxiety Hematologic/Lymphatic: Reports: No Symptoms ED EXAM, GENERAL - Physical Exam Exam: See Below Free Text/Narrative:: This is an adult female lying on the cart in room 4. She sounds a little sleepy but recalls details of events today. Exam Limited By: No Limitations General Appearance: No Apparent Distress Eye Exam: Bilateral Eye: PERRL Ears: Normal External Exam Nose: Normal Inspection Head: Other (There is a roughly 1 cm contusion area at the hairline of the frontal scalp and a smaller barely palpable contusion area lateral to that on the right side and left side of the temporal region of the scalp.) Neck: Supple, Full Range of Motion, Other (There is minimal pain on palpation along the left posterior neck muscles near their insertion at the base of the skull.) Respiratory/Chest: No Respiratory Distress Cardiovascular: Regular Rate, Rhythm Neurological: Alert, Oriented, CN II-XII Intact, No Motor/Sensory Deficits Course - Vital Signs Last Recorded V/S: Last Vital Signs Temp 37.7 C 03/22/20 22:34 Pulse 97 03/22/20 22:34 Resp 16 03/22/20 22:34 BP 120/71 03/22/20 22:34 Pulse Ox 97 03/22/20 22:34 - Re-Assessments/Exams Free Text/Narrative Re-Assessment/Exam: 03/22/20 23:03 The patient was seen and examined. I reviewed her note from the community relations coordinator visit to this department. All labs were normal at that time other than THC present in the urine. I do not see any alarming physical findings today. She sounds a little sleepy however having taken lorazepam regularly since leaving this department 24 hours ago, that would explain her sleepiness. The distance she fell, from a seated position to the floor, and the appearance of her contusions on exam do not warrant CT scanning of the head or cervical spine. Reassurance was provided. I recommend cold packs to painful areas and use of Tylenol or ibuprofen for discomfort. She was discharged in stable condition. Departure - Departure Time of Disposition: 22:52 Disposition: Home, Self-Care 01 Condition: Good Clinical Impression: Anxiety Scalp contusion Qualifiers: Encounter type: initial encounter Qualified Code(s): S00.03XA - Contusion of scalp, initial encounter - Discharge Information *PRESCRIPTION DRUG MONITORING PROGRAM REVIEWED*: Not Applicable *COPY OF PRESCRIPTION DRUG MONITORING REPORT IN PATIENT SHERWIN: Not Applicable Referrals: PCP,None [Primary Care Provider] - Forms: ED Department Discharge Additional Instructions: Cold packs to painful areas on the head 20 minutes on and off as needed. Tylenol 650 mg up to 4 times a day or ibuprofen 800 mg up to 3 times a day as needed for pain. Your sleep cycle has been disrupted because of the recent doses of your anxiety medication. I recommend going to sleep now and waking up at your usual time tomorrow to get your body's own sleep rhythms back in sync. Sepsis Event Note - Evaluation Sepsis Screening Result: No Definite Risk - Focused Exam Vital Signs: Vital Signs Temp Pulse Resp BP Pulse Ox 03/22/20 22:34 37.7 C 97 16 120/71 97 03/22/20 22:30 37.7 C 97 16 120/71 97 Date Exam was Performed: 03/22/20 Time Exam was Performed: 22:55
== END 2020-03-22 23:03 | disposition home or self-care (01) ==
LOC: JP.ED 22:25
DX: S00.03XA Contusion of scalp, initial encounter (principal); F17.210 Nicotine dependence, cigarettes, uncomplicated; W22.8XXA Striking against or struck by other objects, initial encounter; Y92.009 Unspecified place in unspecified non-institutional (private) residence as the place of occurrence of the external cause
CPT/HCPCS: 99282; 99284

== ENCOUNTER 2020-04-03 04:32 | Emergency (ER) | payer SELFPAY ==
[2020-04-03 04:57] VITALS: BP 105/77; PULSE 98
[2020-04-03] MEDS ORDERED: LORazepam 0.5 MG Tab PO ONE (05:06)
--- NOTE | 2020-04-03 05:10 | EDM.PDOCBH ---
<OfficerAlec - Last Filed: 04/03/20 05:07> ED HPI GENERAL MEDICAL PROBLEM - General Chief Complaint: Behavioral/Psych Stated Complaint: WRIST INJURY/EVAL Time Seen by Provider: 04/03/20 05:00 Source of Information: Reports: Patient, RN Notes Reviewed History Limitations: Reports: No Limitations - History of Present Illness INITIAL COMMENTS - FREE TEXT/NARRATIVE: 24-year-old female presents emergency department today for evaluation suicidal ideation, law enforcement has been involved with her 3 times this evening family members have tried to get her to the emergency department for evaluation. She was last brought in by her mom. She has made suicidal gestures by holding a knife to her neck and to her chest she has demonstrated some cutting behavior. 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: , Other (See Below) Other MIXER OPERATOR HELPER HOT METAL History: cyst on ovary Musculoskeletal History: Reports: Fracture, Other (See Below) Other Musculoskeletal History: R hand Fx 5th metacarpal pinning 12/14/19 Neurological History: Reports: Head Trauma Psychiatric History: Reports: Anxiety, Depression, Suicidal Ideation, Other ( See Below) Other Psychiatric History: superficial cutting - Infectious Disease History Infectious Disease History: Reports: Chicken Pox - Past Surgical History Head Surgeries/Procedures: Reports: None HEENT Surgical History: Reports: None Female Surgical History: Reports: Section Musculoskeletal Surgical History: Reports: None Dermatological Surgical History: Reports: None Social & Family History - Family History Family Medical History: Noncontributory HEENT: Reports: Impaired Vision Cardiac: Reports: [place] Neurological: Reports: CVA, Dementia, Seizure Psychiatric: Reports: Anxiety, Depression, Other (See Below) Other Psychiatric Family History: substance abuse Oncologic: Reports: Lung - Tobacco Use Smoking Status *Q: Current Every Day Smoker Years of Tobacco use: 11 Packs/Tins Daily: 1 - Caffeine Use Caffeine Use: Reports: Coffee, Energy Drinks, Soda, Tea - Alcohol Use Date of Last Drink: 04/03/20 - Recreational Drug Use Recreational Drug Use: Yes Recreational Drug Type: Reports: Marijuana/Hashish Recreational Drug Use Frequency: Daily ED ROS GENERAL - Review of Systems Review Of Systems: See Below Constitutional: Reports: No Symptoms HEENT: Reports: No Symptoms Respiratory: Reports: No Symptoms Cardiovascular: Reports: No Symptoms GI/Abdominal: Reports: No Symptoms Musculoskeletal: Reports: No Symptoms Skin: Reports: Wound Neurological: Reports: No Symptoms Psychiatric: Reports: Suicidal Ideation ED EXAM, BEHAVIORAL HEALTH - Physical Exam Exam: See Below Exam Limited By: No Limitations General Appearance: Alert, WD/WN, No Apparent Distress Respiratory/Chest: No Respiratory Distress, Lungs Clear, Normal Breath Sounds, No Accessory Muscle Use, Chest Non-Tender Cardiovascular: Regular Rate, Rhythm, No Murmur GI/Abdominal: Soft, Non-Tender Psychiatric: Alert, Normal Affect, Normal Cognition, Normal Mood, Oriented. No : Homicidal Thoughts, Suicidal Plan, Suicidal Thoughts Skin Exam: Other (Superficial cut smart upper extremities) COURSE, BEHAVIORAL HEALTH COMP - Course Vital Signs: Last Vital Signs Temp 97.6 F 04/03/20 04:47 Pulse 98 04/03/20 04:47 Resp 16 04/03/20 04:47 BP 105/77 04/03/20 04:47 Pulse Ox 99 04/03/20 04:47 Orders, Labs, Meds: Laboratory Tests 04/03/20 04/03/20 04/03/20 Range/Units 05:11 05:11 05:27 WBC (4.5-11.0) K/uL RBC (3.30-5.50) M/uL Hgb (12.0-15.0) g/dL Hct (36.0-48.0) % MCV (80-98) fL MCH (27-31) pg MCHC (32-36) % Plt Count (150-400) K/uL Neut % (Auto) (36-66) % Lymph % (Auto) (24-44) % [place] % (Auto) (2-6) % Eos % (Auto) (2-4) % Baso % (Auto) (0-1) % Sodium (140-148) mmol/L Potassium (3.6-5.2) mmol/L Chloride (100-108) mmol/L Carbon Dioxide (21-32) mmol/L Anion Gap (5.0-14.0) mmol/L BUN (7-18) mg/dL Creatinine (0.6-1.0) mg/dL Est Cr Clr Drug Dosing mL/min Estimated GFR (MDRD) (>60) Glucose (74-106) mg/dL Calcium (8.5-10.1) mg/dL Total Bilirubin (0.2-1.0) mg/dL AST (15-37) U/L ALT (12-78) U/L Alkaline Phosphatase (46-116) U/L Total Protein (6.4-8.2) g/dL Albumin (3.4-5.0) g/dL Globulin (2.3-3.5) g/dL Albumin/Globulin Ratio (1.2-2.2) TSH, Ultra Sensitive 1.769 (0.358-3.740) uIU/mL Urine Color Yellow (YELLOW) Urine Appearance Slightly cloudy A (CLEAR) Urine pH 6.0 (5.0-8.0) Ur Specific [place] >= 1.030 (1.008-1.030) Urine Protein Trace H (NEGATIVE) mg/dL Urine Glucose (UA) Negative (NEGATIVE) mg/dL Urine Ketones Negative (NEGATIVE) mg/dL Urine Occult Blood Small H (NEGATIVE) Urine Nitrite Negative (NEGATIVE) Urine Bilirubin Small H (NEGATIVE) Urine Urobilinogen 1.0 (0.2-1.0) EU/dL Ur Leukocyte Esterase Negative (NEGATIVE) Urine RBC 0-5 (0-5) Urine WBC 5-10 H (0-5) Ur Epithelial Cells Occasional Urine Bacteria Rare Urine Mucus Moderate Urine Opiates Screen Negative (NEGATIVE) Ur Oxycodone Screen Negative (NEGATIVE) Urine Methadone Screen Negative (NEGATIVE) Ur Propoxyphene Screen Negative (NEGATIVE) Ur Barbiturates Screen Negative (NEGATIVE) Ur Tricyclics Screen Negative (NEGATIVE) Ur Phencyclidine Scrn Negative (NEGATIVE) Ur Amphetamine Screen Presumptive positive H (NEGATIVE) U Methamphetamines Scrn Negative (NEGATIVE) Urine MDMA Screen Negative (NEGATIVE) U Benzodiazepines Scrn Negative (NEGATIVE) U Cocaine Metab Screen Negative (NEGATIVE) U Marijuana (THC) Screen Presumptive positive H (NEGATIVE) Ethyl Alcohol mg/dL 04/03/20 04/03/20 04/03/20 Range/Units 05:27 05:27 05:27 WBC 8.3 (4.5-11.0) K/uL RBC 4.64 (3.30-5.50) M/uL Hgb 14.6 (12.0-15.0) g/dL Hct 42.8 (36.0-48.0) % MCV 92 (80-98) fL MCH 32 H (27-31) pg MCHC 34 (32-36) % Plt Count 211 (150-400) K/uL Neut % (Auto) 65 (36-66) % Lymph % (Auto) 27 (24-44) % [place] % (Auto) 7 H (2-6) % Eos % (Auto) 1 L (2-4) % Baso % (Auto) 0 (0-1) % Sodium 144 (140-148) mmol/L Potassium 3.4 L (3.6-5.2) mmol/L Chloride 106 (100-108) mmol/L Carbon Dioxide 23 (21-32) mmol/L Anion Gap 18.4 H (5.0-14.0) mmol/L BUN 10 (7-18) mg/dL Creatinine 0.8 (0.6-1.0) mg/dL Est Cr Clr Drug Dosing 91.24 mL/min Estimated GFR (MDRD) > 60 (>60) Glucose 90 (74-106) mg/dL Calcium 8.7 (8.5-10.1) mg/dL Total Bilirubin 0.7 (0.2-1.0) mg/dL AST 16 (15-37) U/L ALT 27 (12-78) U/L Alkaline Phosphatase 62 (46-116) U/L Total Protein 7.4 (6.4-8.2) g/dL Albumin 4.2 (3.4-5.0) g/dL Globulin 3.2 (2.3-3.5) g/dL Albumin/Globulin Ratio 1.3 (1.2-2.2) TSH, Ultra Sensitive (0.358-3.740) uIU/mL Urine Color (YELLOW) Urine Appearance (CLEAR) Urine pH (5.0-8.0) Ur Specific [place] (1.008-1.030) Urine Protein (NEGATIVE) mg/dL Urine Glucose (UA) (NEGATIVE) mg/dL Urine Ketones (NEGATIVE) mg/dL Urine Occult Blood (NEGATIVE) Urine Nitrite (NEGATIVE) Urine Bilirubin (NEGATIVE) Urine Urobilinogen (0.2-1.0) EU/dL Ur Leukocyte Esterase (NEGATIVE) Urine RBC (0-5) Urine WBC (0-5) Ur Epithelial Cells Urine Bacteria Urine Mucus Urine Opiates Screen (NEGATIVE) Ur Oxycodone Screen (NEGATIVE) Urine Methadone Screen (NEGATIVE) Ur Propoxyphene Screen (NEGATIVE) Ur Barbiturates Screen (NEGATIVE) Ur Tricyclics Screen (NEGATIVE) Ur Phencyclidine Scrn (NEGATIVE) Ur Amphetamine Screen (NEGATIVE) U Methamphetamines Scrn (NEGATIVE) Urine MDMA Screen (NEGATIVE) U Benzodiazepines Scrn (NEGATIVE) U Cocaine Metab Screen (NEGATIVE) U Marijuana (THC) Screen (NEGATIVE) Ethyl Alcohol 48 mg/dL Medications Discontinued Medications Generic Name Dose Route Start Last Admin Trade Name Freq PRN Reason Stop Dose Admin Lorazepam 0.5 mg 04/03/20 05:06 04/03/20 05:16 Ativan PO 04/03/20 05:07 0.5 mg ONETIME ONE Administration Departure - Departure Disposition: Home, Self-Care 01 Clinical Impression: Suicide gesture Qualifiers: Encounter type: initial encounter Qualified Code(s): X83.8XXA - Intentional self-harm by other specified means, initial encounter Alcohol intoxication Qualifiers: Complication of substance-induced condition: uncomplicated Qualified Code(s): F10.920 - Alcohol use, unspecified with intoxication, uncomplicated - Discharge Information Instructions: Binge-Drinking Information, Adult Referrals: PCP,None [Primary Care Provider] - Forms: ED Department Discharge Care Plan Goals: Avoid further alcohol in the near future and follow the crisis intervention mallet cutter recommendations. Sepsis Event Note - Evaluation Sepsis Screening Result: No Definite Risk - Focused Exam Vital Signs: Vital Signs Temp Pulse Resp BP Pulse Ox 04/03/20 04:47 97.6 F 98 16 105/77 99 Date Exam was Performed: 04/03/20 Time Exam was Performed: 05:07 <Victorino Lazcano - Last Filed: 04/03/20 13:37> COURSE, BEHAVIORAL HEALTH COMP - Course Re-Assessment/Re-Exam: Care turned over from Officer pending a psychiatric evaluation. A crisis prevention plan was arranged with the patient through the crisis mallet cutter, and the patient no longer feels she wants to do self-harm. She will be discharged with instructions to follow the recommendations from the crisis prevention mallet cutter. Departure - Departure Time of Disposition: 09:59 Sepsis Event Note - Focused Exam Date Exam was Performed: 04/03/20 Time Exam was Performed: 13:36
== END 2020-04-03 09:59 | disposition home or self-care (01) ==
LOC: JP.ED 04:32
DX: S51.811A Laceration without foreign body of right forearm, initial encounter (principal); F10.920 Alcohol use, unspecified with intoxication, uncomplicated; F17.210 Nicotine dependence, cigarettes, uncomplicated; X78.1XXA Intentional self-harm by knife, initial encounter
CPT/HCPCS: 36415; 80053; 80305; 80307; 81001; 84443; 85025; 99285; A9270

== ENCOUNTER 2020-05-23 09:19 | Emergency (ER) | payer SELFPAY ==
[2020-05-23 09:44] VITALS: BP 121/79; PULSE 66
--- NOTE | 2020-05-23 10:15 | EDM.PDOC ---
ED HPI GENERAL MEDICAL PROBLEM - General Chief Complaint: ENT Problem Stated Complaint: SWOLLEN LEFT JAW/FACE Time Seen by Provider: 05/23/20 09:55 Source of Information: Reports: Patient, Old Records, RN History Limitations: Reports: No Limitations - History of Present Illness INITIAL COMMENTS - FREE TEXT/NARRATIVE: 24 yo female presents with a 3 day hx of sore throat and now swelling under her L jaw. Says it hurts to bite down. No fever or rash. Needs a note for work. Onset: Gradual Onset Date: 05/20/20 Duration: Day(s): (3), Getting Worse Location: Reports: Face (left), Neck (throat) Quality: Reports: Ache Severity: Moderate Improves with: Reports: Medication Worsens with: Reports: Other (? time) Context: Reports: Other (See HPI) Associated Symptoms: Reports: No Other Symptoms. Denies: Fever/Chills Treatments CARDIOLOGY FELLOW: Reports: Other (see below) (none) - Related Data Allergies Allergy/AdvReac Type Severity Reaction Status Date / Time No Known Allergies Allergy Verified 04/03/20 04:57 Home Meds: Home Meds Acetaminophen/HYDROcodone [Duncan 325-5 MG] 1 - 2 tab PO Q6H PRN #12 tab 05/23/20 [Rx] Penicillin V Potassium 500 mg PO Q6H #40 tablet 05/23/20 [Rx] Past Medical History HEENT History: Reports: Impaired Vision Other HEENT History: wears glasses Cardiovascular History: Reports: None Respiratory History: Reports: None Gastrointestinal History: Reports: None Genitourinary History: Reports: None DIRECTOR OF 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 SERVICES History: Reports: , Other (See Below) Other DIRECTOR OF MEDICAL SERVICES History: cyst on ovary Musculoskeletal History: Reports: Fracture, Other (See Below) Other Musculoskeletal History: R hand Fx 5th metacarpal pinning 12/14/19 Neurological History: Reports: Head Trauma Psychiatric History: Reports: Anxiety, Depression, Suicidal Ideation, Other (See Below) Other Psychiatric History: superficial cutting Endocrine/Metabolic History: Reports: None Hematologic History: Reports: None Immunologic History: Reports: None Oncologic (Cancer) History: Reports: None Dermatologic History: Reports: None - Infectious Disease History Infectious Disease History: Reports: Chicken Pox - Past Surgical History Head Surgeries/Procedures: Reports: None HEENT Surgical History: Reports: None Female Surgical History: Reports: Section Musculoskeletal Surgical History: Reports: None Dermatological Surgical History: Reports: None Social & Family History - Family History Family Medical History: Noncontributory HEENT: Reports: Impaired Vision Cardiac: Reports: [place] Neurological: Reports: CVA, Dementia, Seizure Psychiatric: Reports: Anxiety, Depression, Other (See Below) Other Psychiatric Family History: substance abuse Oncologic: Reports: Lung - Tobacco Use Years of Tobacco use: 11 Packs/Tins Daily: 1 - Caffeine Use Caffeine Use: Reports: Coffee, Energy Drinks, Soda - Recreational Drug Use Recreational Drug Use: No ED ROS ENT - Review of Systems Review Of Systems: See Below Constitutional: Reports: No Symptoms HEENT: Reports: Dental Pain, Throat Pain. Denies: Rhinitis, Throat Swelling Respiratory: Reports: No Symptoms Cardiovascular: Reports: No Symptoms Skin: Reports: No Symptoms Neurological: Reports: No Symptoms ED EXAM, ENT - Physical Exam Exam: See Below Exam Limited By: No Limitations General Appearance: Alert, WD/WN, No Apparent Distress Eye Exam: Bilateral Eye: Normal Inspection Ears: Normal External Exam, Normal Canal, Hearing Grossly Normal, Normal TMs Nose: Normal Inspection, No Blood Mouth/Throat: Normal Inspection, Normal Lips, Normal Oropharynx, Other (there is a molar on the L mandible with a filling. This molar is tender with percussion. There is swelling under the angle of the jaw.). No: Pharyngeal Erythema, Tonsillar Erythema, Tonsillar Exudates, Tonsillar Swelling Head: Atraumatic, Normocephalic Neck: Normal Inspection. No: Lymphadenopathy (R), Lymphadenopathy (L) Respiratory/Chest: No Respiratory Distress, Lungs Clear, Normal Breath Sounds, No Accessory Muscle Use Cardiovascular: Regular Rate, Rhythm, No Edema Neurological: Alert, Oriented, CN II-XII Intact, Normal Cognition, No Motor/Sensory Deficits Psychiatric: Normal Affect, Normal Mood Skin: Warm, Dry, Intact, Normal Color, No Rash Course - Vital Signs Last Recorded V/S: Last Vital Signs Temp 36.6 C 05/23/20 09:44 Pulse 66 05/23/20 09:44 Resp 16 05/23/20 09:44 BP 121/79 05/23/20 09:44 Pulse Ox 99 05/23/20 09:44 Departure - Departure Time of Disposition: 10:15 Disposition: Home, Self-Care 01 Condition: Fair Clinical Impression: Dental infection - Discharge Information *PRESCRIPTION DRUG MONITORING PROGRAM REVIEWED*: No *COPY OF PRESCRIPTION DRUG MONITORING REPORT IN PATIENT SHERWIN: No Prescriptions: Acetaminophen/HYDROcodone [Duncan 325-5 MG] 1 - 2 tab PO Q6H PRN #12 tab PRN Reason: Pain Penicillin V Potassium 500 mg PO Q6H #40 tablet Referrals: PCP,None [Primary Care Provider] - Forms: ED Department Discharge, ED Return to Work/School Form Additional Instructions: Use ibuprofen 400 mg every 6 hrs for pain relief. Add either acetaminophen OR Duncan for added relief. Take PCN as directed until gone. See your dentist for recheck and possibly your family doctor as needed. Sepsis Event Note (ED) - Evaluation Sepsis Screening Result: No Definite Risk - Focused Exam Vital Signs: Vital Signs Temp Pulse Resp BP Pulse Ox 05/23/20 09:44 36.6 C 66 16 121/79 99 05/23/20 09:43 36.6 C 66 16 121/79 99
== END 2020-05-23 10:29 | disposition home or self-care (01) ==
LOC: JP.ED 09:19
DX: K04.7 Periapical abscess without sinus (principal); F17.210 Nicotine dependence, cigarettes, uncomplicated
CPT/HCPCS: 99282

== ENCOUNTER 2020-05-24 18:11 | Emergency (ER) | payer SELFPAY ==
[2020-05-24 19:10] VITALS: BP 130/80; PULSE 88
[2020-05-24] MEDS ORDERED: Sodium Chloride 0.9% 10 ML Syringe FLUSH PRN (19:48)
--- NOTE | 2020-05-24 19:48 | EDM.PDOC ---
ED HPI GENERAL MEDICAL PROBLEM - General Chief Complaint: ENT Problem Stated Complaint: INFECTION TOOTH/JAW, SWELLING WORSE Time Seen by Provider: 05/24/20 19:41 Source of Information: Reports: Patient History Limitations: Reports: No Limitations - History of Present Illness INITIAL COMMENTS - FREE TEXT/NARRATIVE: Patient presents with questions about a worsening left sided face, jaw, neck infection. Symptoms began a couple days ago. She was seen in this department and prescribed hydrocodone and amoxicillin. When she awoke this morning she had more left-sided facial swelling as well as pain and swelling down the left side of the neck. It is painful to open and close the jaw. Attempting to drink or eat food is uncomfortable because of pain with swallowing. She does not have any type of dental follow-up appointment scheduled at this time but normally goes to the [facility] dental clinic nearby. [facility]. but based on symptoms and appearance, she was directed here. Onset: Gradual Duration: Day(s): (3) Location: Reports: Head Quality: Reports: Ache, Dull, Pressure Severity: Moderate Improves with: Reports: None Worsens with: Reports: Movement Associated Symptoms: Reports: No Other Symptoms Left Face/Facial Pain Score (Numeric/FACES): 8 - Related Data Allergies Allergy/AdvReac Type Severity Reaction Status Date / Time No Known Allergies Allergy Verified 05/24/20 19:07 Home Meds: Home Meds Acetaminophen/HYDROcodone [[place] 325-5 MG] 1 - 2 tab PO Q6H PRN #12 tab 05/23/20 [Rx] Penicillin V Potassium 500 mg PO Q6H #40 tablet 05/23/20 [Rx] Past Medical History HEENT History: Reports: Impaired Vision Other HEENT History: wears glasses Cardiovascular History: Reports: None Respiratory History: Reports: None Gastrointestinal History: Reports: None Genitourinary History: Reports: None [employer]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 [employer] History: Reports: , Other (See Below) Other 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 History: cyst on ovary Musculoskeletal History: Reports: Fracture, Other (See Below) Other Musculoskeletal History: R hand Fx 5th metacarpal pinning 12/14/19 Neurological History: Reports: Head Trauma Psychiatric History: Reports: Anxiety, Depression, Suicidal Ideation, Other (See Below) Other Psychiatric History: superficial cutting Endocrine/Metabolic History: Reports: None Hematologic History: Reports: None Immunologic History: Reports: None Oncologic (Cancer) History: Reports: None Dermatologic History: Reports: None - Infectious Disease History Infectious Disease History: Reports: Chicken Pox - Past Surgical History Head Surgeries/Procedures: Reports: None HEENT Surgical History: Reports: None Female Surgical History: Reports: Section Musculoskeletal Surgical History: Reports: None Dermatological Surgical History: Reports: None Social & Family History - Family History Family Medical History: Noncontributory HEENT: Reports: Impaired Vision Cardiac: Reports: [place] Neurological: Reports: CVA, Dementia, Seizure Psychiatric: Reports: Anxiety, Depression, Other (See Below) Other Psychiatric Family History: substance abuse Oncologic: Reports: Lung - Tobacco Use Smoking Status *Q: Current Every Day Smoker Years of Tobacco use: 11 Packs/Tins Daily: 1 - Caffeine Use Caffeine Use: Reports: Coffee, Energy Drinks, Soda - Recreational Drug Use Recreational Drug Use: No ED ROS ENT - Review of Systems Review Of Systems: See Below HEENT: Reports: Dental Pain, Other (Swelling of left side of jaw and neck.). Denies: Nose Pain, Rhinitis, Throat Swelling (Although it is uncomfortable to open her mouth.) Respiratory: Reports: No Symptoms Cardiovascular: Reports: No Symptoms GI/Abdominal: Reports: No Symptoms Musculoskeletal: Reports: No Symptoms ED EXAM, ENT - Physical Exam Exam: See Below Text/Narrative:: Is an uncomfortable appearing female who moves her head slowly from side to side as we talk. Her voice is different than her usual voice per her report. Exam Limited By: No Limitations General Appearance: Moderate Distress Ears: Normal External Exam Nose: Normal Inspection Mouth/Throat: Dental Abcess, Gum Swelling, Throat Pain. No: Lip Swelling, Oral Ulcers, Tonsillar Erythema Head: Facial Swelling (Left-sided.) Neck: Other (Left sided neck edema.). No: Lymphadenopathy (R), Lymphadenopathy (L) Respiratory/Chest: Lungs Clear Cardiovascular: Regular Rate, Rhythm Course - Vital Signs Last Recorded V/S: Last Vital Signs Temp 36.3 C 05/24/20 19:09 Pulse 88 05/24/20 19:09 Resp 16 05/24/20 19:09 BP 130/80 05/24/20 19:09 Pulse Ox 99 05/24/20 19:09 - Orders/Labs/Meds Orders: Active Orders 24 hr Category Date Time Status Neck Soft Tissue [CR] Stat Exams 05/24/20 19:52 Taken Saline Lock Insert [OM.PC] Routine Oth 05/24/20 19:48 Ordered Labs: Laboratory Tests 05/24/20 05/24/20 Range/Units 19:55 19:55 WBC 11.1 H (4.5-11.0) K/uL RBC 4.84 (3.30-5.50) M/uL Hgb 15.2 H (12.0-15.0) g/dL Hct 45.4 (36.0-48.0) % MCV 94 (80-98) fL MCH 31 (27-31) pg MCHC 34 (32-36) % Plt Count 203 (150-400) K/uL Neut % (Auto) 81 H (36-66) % Lymph % (Auto) 10 L (24-44) % [place] % (Auto) 8 H (2-6) % Eos % (Auto) 0 L (2-4) % Baso % (Auto) 0 (0-1) % Sodium 138 L (140-148) mmol/L Potassium 4.0 (3.6-5.2) mmol/L Chloride 100 (100-108) mmol/L Carbon Dioxide 24 (21-32) mmol/L Anion Gap 18.0 H (5.0-14.0) mmol/L BUN 15 (7-18) mg/dL Creatinine 0.8 (0.6-1.0) mg/dL Est Cr Clr Drug Dosing 87.24 mL/min Estimated GFR (MDRD) > 60 (>60) Glucose 87 (74-106) mg/dL Calcium 9.9 (8.5-10.1) mg/dL C-Reactive Protein > 25.00 H (0.0-0.3) mg/dL Meds: Medications Discontinued Medications Generic Name Dose Route Start Last Admin Trade Name Freq PRN Reason Stop Dose Admin Dexamethasone 8 mg 05/24/20 19:49 05/24/20 20:23 Dexamethasone IVPUSH 05/24/20 19:50 8 mg ONETIME ONE Administration Clindamycin Phosphate 900 mg/ 106 mls @ 200 mls/hr 05/24/20 19:49 05/24/20 20:26 Sodium Chloride IV 05/24/20 20:20 200 mls/hr ONETIME ONE Administration Sodium Chloride 10 ml 07/23/20 19:48 05/24/20 20:17 Saline Flush FLUSH 10 ml ASDIRECTED PRN Administration Keep Vein Open - Re-Assessments/Exams Free Text/Narrative Re-Assessment/Exam: 05/25/20 06:27 Patient was given clindamycin 900 mg IV along with dexamethasone 8 mg IV and 1 L of normal saline by rapid infusion. Following completion of these medications and fluids she was probably 50% improved and facial swelling had diminished some and her voice also sounded improved. A soft tissue neck x-ray showed some edema but no obvious abscess within soft tissues. An [employer] prescription was entered for clindamycin 150 mg capsules to be used 300 mg 3 times daily over the next week. She should contact her dental office as soon as possible to arrange a recheck for what appears to be a significant dental abscess. If feeling worse in any way she should return to this department. Departure - Departure Time of Disposition: 21:27 Disposition: Home, Self-Care 01 Condition: Good Clinical Impression: Dental abscess - Discharge Information Instructions: Dental Abscess Referrals: Susu Perez MD [Primary Care Provider] - Forms: ED Department Discharge Additional Instructions: Take the first oral dose of clindamycin tonight before going to bed. Use ibuprofen 800 mg 3 times a day. Be sure to drink liquids, use a straw if you need to but it is important to keep fluids going forward. Not need to take the penicillin antibiotic since you now have clindamycin. Contact your dentist office as soon as possible to arrange a recheck time. Return to ER if feeling worse in any way. Sepsis Event Note (ED) - Evaluation Sepsis Screening Result: No Definite Risk - Focused Exam Vital Signs: Vital Signs Temp Pulse Resp BP Pulse Ox 05/24/20 19:09 36.3 C 88 16 130/80 99 - My Orders Last 24 Hours: My Active Orders 05/24/20 19:48 Saline Lock Insert [OM.PC] Routine 05/24/20 19:52 Neck Soft Tissue [CR] Stat - Assessment/Plan Last 24 Hours: My Active Orders 05/24/20 19:48 Saline Lock Insert [OM.PC] Routine 05/24/20 19:52 Neck Soft Tissue [CR] Stat
[2020-05-24] MEDS ORDERED: Clindamycin Phosphate 900 MG in Sodium Chloride 0.9% 100 ML IV ONE (19:49)
[2020-05-24] MEDS ORDERED: Dexamethasone 4 MG/ML SDV IVPUSH ONE (19:49)
--- NOTE | 2020-05-25 09:02 | CR ---
Neck Soft Tissue CLINICAL HISTORY: Facial pain and swelling FINDINGS: Prevertebral soft tissues are normal. Epiglottis has a normal contour. No radiopaque foreign body is identified. Subglottic airway has a normal contour. There may be some submandibular swelling. Impression: Submandibular soft tissue swelling Airway has a normal contour
== END 2020-05-24 21:39 | disposition home or self-care (01) ==
LOC: JP.ED 18:11
DX: K04.7 Periapical abscess without sinus (principal); F17.210 Nicotine dependence, cigarettes, uncomplicated
CPT/HCPCS: 36415; 70360; 80048; 85025; 86140; 96365; 96375; 99283; J1100; J3490; J7050

== ENCOUNTER 2020-11-26 22:19 | Emergency (ER) | payer MEDICAID ==
[2020-11-26 23:15] VITALS: BP 118/72; PULSE 62
[2020-11-26] MEDS ORDERED: Ondansetron 4 MG/2 ML SDV IVPUSH ONE (23:25)
[2020-11-26] MEDS ORDERED: Sodium Chloride 0.9% 10 ML Syringe FLUSH PRN (23:25)
--- NOTE | 2020-11-26 23:28 | EDM.PDOC ---
ED HPI GENERAL MEDICAL PROBLEM - General Chief Complaint: Abdominal Pain Stated Complaint: VOMITTING. STARTED THURSDAY Time Seen by Provider: 11/26/20 23:22 Source of Information: Reports: Patient, Family, RN Notes Reviewed History Limitations: Reports: No Limitations - History of Present Illness INITIAL COMMENTS - FREE TEXT/NARRATIVE: 25-year-old female presents emergency department a complaint of nausea and vomiting, she does admit to using "fireball" which is a hard liquor which produces epigastric pain she is not vomiting any blood, having difficulty keeping other food products down she is the only one that is sick at this time in the household Abdominal Pain Score (Numeric/FACES): 5 - Related Data Allergies Allergy/AdvReac Type Severity Reaction Status Date / Time No Known Allergies Allergy Verified 11/26/20 23:11 Home Meds: Home Meds NK [No Known Home Meds] 11/26/20 [History] Past Medical History HEENT History: Reports: Impaired Vision Other HEENT History: wears glasses Genitourinary History: Reports: UTI, Recurrent TILER History: Reports: , Other (See Below) Other TILER History: cyst on ovary Musculoskeletal History: Reports: Fracture, Other (See Below) Other Musculoskeletal History: R hand Fx 5th metacarpal pinning 12/14/19 Neurological History: Reports: Headaches, Chronic, Head Trauma, Migraines Psychiatric History: Reports: Anxiety, Depression, Suicidal Ideation, Other (See Below) Other Psychiatric History: superficial cutting - Infectious Disease History Infectious Disease History: Reports: Chicken Pox - Past Surgical History Head Surgeries/Procedures: Reports: None HEENT Surgical History: Reports: None Female Surgical History: Reports: Section Musculoskeletal Surgical History: Reports: None Other Musculoskeletal Surgeries/Procedures:: right hand pinning 12/14/19 Dermatological Surgical History: Reports: None Social & Family History - Family History Family Medical History: No Pertinent Family History HEENT: Reports: Impaired Vision Cardiac: Reports: ID Neurological: Reports: CVA, Dementia, Seizure Psychiatric: Reports: Anxiety, Depression, Other (See Below) Other Psychiatric Family History: substance abuse Oncologic: Reports: Lung - Tobacco Use Tobacco Use Status *Q: Current Every Day Tobacco User Years of Tobacco use: 10 Packs/Tins Daily: 1 - Caffeine Use Caffeine Use: Reports: Coffee, Energy Drinks, Soda - Alcohol Use Days Per Week of Alcohol Use: 2 Number of Drinks Per Day: 2 Total Drinks Per Week: 4 - Recreational Drug Use Recreational Drug Use: No ED ROS GENERAL - Review of Systems Review Of Systems: See Below Constitutional: Reports: No Symptoms HEENT: Reports: No Symptoms Respiratory: Reports: No Symptoms Cardiovascular: Reports: No Symptoms GI/Abdominal: Reports: Abdominal Pain, Nausea, Vomiting ED EXAM, GI/ABD - Physical Exam Exam: See Below Exam Limited By: No Limitations General Appearance: Alert, WD/WN, No Apparent Distress Respiratory/Chest: No Respiratory Distress, Lungs Clear, Normal Breath Sounds, No Accessory Muscle Use, Chest Non-Tender Cardiovascular: Regular Rate, Rhythm, No Murmur GI/Abdominal Exam: Soft, Non-Tender Course - Vital Signs Last Recorded V/S: Last Vital Signs Temp 99.9 F 11/26/20 23:15 Pulse 62 11/26/20 23:15 Resp 17 11/26/20 23:15 BP 118/72 11/26/20 23:15 Pulse Ox 96 11/26/20 23:15 - Orders/Labs/Meds Orders: Active Orders 24 hr Category Date Time Status Peripheral IV Care [RC] . DIRECTED Care 11/26/20 23:25 Active HCG QUALITATIVE,URINE [URCHEM] Routine Lab 11/27/20 00:41 Ordered Lactated Ringers [Ringers, Lactated] 1,000 ml Med 11/26/20 23:30 Active IV ASDIRECTED Sodium Chloride 0.9% [Saline Flush] Med 11/26/20 23:25 Active 10 ml FLUSH ASDIRECTED PRN Peripheral IV Insertion Adult [OM.PC] Urgent Oth 11/26/20 23:25 Ordered Medication Orders Lactated Ringer's (Ringers, Lactated) 1,000 mls @ 999 mls/hr IV ASDIRECTED DOMINIC Last Admin: 11/26/20 23:43 Dose: 999 mls/hr Documented by: CHINEDU Sodium Chloride (Saline Flush) 10 ml FLUSH ASDIRECTED PRN PRN Reason: Keep Vein Open Last Admin: 11/26/20 23:43 Dose: 10 ml Documented by: CHINEDU Labs: Laboratory Tests 11/26/20 11/26/20 11/26/20 Range/Units 23:40 23:40 23:40 WBC 9.4 (4.5-11.0) K/uL RBC 5.22 (3.30-5.50) M/uL Hgb 16.5 H (12.0-15.0) g/dL Hct 47.8 (36.0-48.0) % MCV 92 (80-98) fL MCH 32 H (27-31) pg MCHC 35 (32-36) % Plt Count 230 (150-400) K/uL Neut % (Auto) 73 H (36-66) % Lymph % (Auto) 21 L (24-44) % [place] % (Auto) 6 (2-6) % Eos % (Auto) 0 L (2-4) % Baso % (Auto) 0 (0-1) % Sodium 140 (140-148) mmol/L Potassium 3.1 L (3.6-5.2) mmol/L Chloride 99 L (100-108) mmol/L Carbon Dioxide 26 (21-32) mmol/L Anion Gap 18.1 H (5.0-14.0) mmol/L BUN 16 (7-18) mg/dL Creatinine 0.8 (0.6-1.0) mg/dL Est Cr Clr Drug Dosing 86.50 mL/min Estimated GFR (MDRD) > 60 (>60) Glucose 85 (74-106) mg/dL Lactic Acid 1.2 (0.4-2.0) mmol/L Calcium 9.6 (8.5-10.1) mg/dL Total Bilirubin 1.5 H D (0.2-1.0) mg/dL AST 20 (15-37) U/L ALT 32 (12-78) U/L Alkaline Phosphatase 77 (46-116) U/L Total Protein 7.7 (6.4-8.2) g/dL Albumin 4.5 (3.4-5.0) g/dL Globulin 3.2 (2.3-3.5) g/dL Albumin/Globulin Ratio 1.4 (1.2-2.2) Urine Color (YELLOW) Urine Appearance (CLEAR) Urine pH (5.0-8.0) Ur Specific Collins (1.008-1.030) Urine Protein (NEGATIVE) mg/dL Urine Glucose (UA) (NEGATIVE) mg/dL Urine Ketones (NEGATIVE) mg/dL Urine Occult Blood (NEGATIVE) Urine Nitrite (NEGATIVE) Urine Bilirubin (NEGATIVE) Urine Urobilinogen (0.2-1.0) EU/dL Ur Leukocyte Esterase (NEGATIVE) Urine RBC (0-5) Urine WBC (0-5) Ur Epithelial Cells Amorphous Sediment Urine Bacteria Urine Mucus 11/27/20 Range/Units 00:41 WBC (4.5-11.0) K/uL RBC (3.30-5.50) M/uL Hgb (12.0-15.0) g/dL Hct (36.0-48.0) % MCV (80-98) fL MCH (27-31) pg MCHC (32-36) % Plt Count (150-400) K/uL Neut % (Auto) (36-66) % Lymph % (Auto) (24-44) % [place] % (Auto) (2-6) % Eos % (Auto) (2-4) % Baso % (Auto) (0-1) % Sodium (140-148) mmol/L Potassium (3.6-5.2) mmol/L Chloride (100-108) mmol/L Carbon Dioxide (21-32) mmol/L Anion Gap (5.0-14.0) mmol/L BUN (7-18) mg/dL Creatinine (0.6-1.0) mg/dL Est Cr Clr Drug Dosing mL/min Estimated GFR (MDRD) (>60) Glucose (74-106) mg/dL Lactic Acid (0.4-2.0) mmol/L Calcium (8.5-10.1) mg/dL Total Bilirubin (0.2-1.0) mg/dL AST (15-37) U/L ALT (12-78) U/L Alkaline Phosphatase (46-116) U/L Total Protein (6.4-8.2) g/dL Albumin (3.4-5.0) g/dL Globulin (2.3-3.5) g/dL Albumin/Globulin Ratio (1.2-2.2) Urine Color Yellow (YELLOW) Urine Appearance Slightly cloudy A (CLEAR) Urine pH 6.5 (5.0-8.0) Ur Specific [place] 1.025 (1.008-1.030) Urine Protein 30 H (NEGATIVE) mg/dL Urine Glucose (UA) Negative (NEGATIVE) mg/dL Urine Ketones >=160 H (NEGATIVE) mg/dL Urine Occult Blood Negative (NEGATIVE) Urine Nitrite Negative (NEGATIVE) Urine Bilirubin Small H (NEGATIVE) Urine Urobilinogen 1.0 (0.2-1.0) EU/dL Ur Leukocyte Esterase Trace H (NEGATIVE) Urine RBC 0-5 (0-5) Urine WBC 10-20 H (0-5) Ur Epithelial Cells Many Amorphous Sediment Not seen Urine Bacteria Moderate Urine Mucus Many Meds: Medications Generic Name Dose Route Start Last Admin Trade Name Freq PRN Reason Stop Dose Admin Lactated Ringer's 1,000 mls @ 999 mls/hr 11/26/20 23:30 11/26/20 23:43 Ringers, Lactated IV 999 mls/hr ASDIRECTED DOMINIC Administration Sodium Chloride 10 ml 11/26/20 23:25 11/26/20 23:43 Saline Flush FLUSH 10 ml ASDIRECTED PRN Administration Keep Vein Open Discontinued Medications Generic Name Dose Route Start Last Admin Trade Name Freq PRN Reason Stop Dose Admin Ondansetron HCl 4 mg 11/26/20 23:25 11/26/20 23:43 Zofran IVPUSH 11/26/20 23:26 4 mg ONETIME ONE Administration Departure - Departure Time of Disposition: 01:07 Disposition: Home, Self-Care 01 Condition: Fair Clinical Impression: Gastroenteritis - Discharge Information Instructions: Viral Gastroenteritis, Adult, [id number] Referrals: PCP,None [Primary Care Provider] - Forms: ED Department Discharge Additional Instructions: Use Zofran as needed for nausea vomiting symptoms, continue to push fluids, please followup with your primary care provider in 3-5 days if not better, please call return to the emergency department with worsening of symptoms. Sepsis Event Note (ED) - Evaluation Sepsis Screening Result: No Definite Risk - Focused Exam Vital Signs: Vital Signs Temp Pulse Resp BP Pulse Ox 11/26/20 23:15 99.9 F 62 17 118/72 96 11/26/20 23:14 99.9 F 62 17 118/72 96 - My Orders Last 24 Hours: My Active Orders 11/26/20 23:25 Peripheral IV Care [RC] . DIRECTED Sodium Chloride 0.9% [Saline Flush] 10 ml FLUSH ASDIRECTED PRN Peripheral IV Insertion Adult [OM.PC] Urgent 11/26/20 23:30 Lactated Ringers [Ringers, Lactated] 1,000 ml IV ASDIRECTED 11/27/20 00:41 HCG QUALITATIVE,URINE [URCHEM] Routine - Assessment/Plan Last 24 Hours: My Active Orders 11/26/20 23:25 Peripheral IV Care [RC] . DIRECTED Sodium Chloride 0.9% [Saline Flush] 10 ml FLUSH ASDIRECTED PRN Peripheral IV Insertion Adult [OM.PC] Urgent 11/26/20 23:30 Lactated Ringers [Ringers, Lactated] 1,000 ml IV ASDIRECTED 11/27/20 00:41 HCG QUALITATIVE,URINE [URCHEM] Routine Plan: Assessment Acuity = acute Site and laterality = gastroenteritis Etiology = probable viral Manifestations = nausea and vomiting Location of injury = Home Lab values = CBC unremarkable potassium low at 3.1 consistent hypokalemia, bilirubin elevated 1.5 consistent hyperbilirubinemia specific gravity urine 1.025 consistent with intravascular volume depletion 10-20 WBCs consistent with pyuria urine test was negative Plan Good improvement with Zofran and 1 L fluids prescription written for Zofran 4 mg ODT 1 tab p.o. 3 times daily as needed total number follow-up primary care 3 to 5 days if not better This note was dictated using [employer] recognition software please call with any questions on syntax or grammar.
[2020-11-26] MEDS ORDERED: Lactated Ringers 1,000 ML IV SCH (23:30)
== END 2020-11-27 01:14 | disposition home or self-care (01) ==
LOC: JP.ED 22:19
DX: K52.9 Noninfective gastroenteritis and colitis, unspecified (principal); Z72.0 Tobacco use
CPT/HCPCS: 36415; 80053; 81001; 81025; 83605; 85025; 96374; 99284; J2405; J7120

== ENCOUNTER 2020-11-28 11:11 | Emergency (ER) | payer MEDICAID ==
[2020-11-28] MEDS ORDERED: HYDROmorphone 0.5 MG/0.5 ML Syringe IVPUSH ONE (12:07)
[2020-11-28] MEDS ORDERED: LORazepam 2 MG/ML SDV IVPUSH ONE (12:07)
[2020-11-28] MEDS ORDERED: Sodium Chloride 0.9% 1,000 ML IV SCH (12:15)
--- NOTE | 2020-11-28 12:27 | EDM.PDOC ---
ED HPI GENERAL MEDICAL PROBLEM - General Chief Complaint: Abdominal Pain Stated Complaint: VOMITING PAIN IN STOMACH AREA Time Seen by Provider: 11/28/20 11:55 Source of Information: Reports: Patient, Family History Limitations: Reports: No Limitations - History of Present Illness INITIAL COMMENTS - FREE TEXT/NARRATIVE: 25-year-old female was had nausea vomiting and epigastric pain for the past 5 days. This started after drinking some fireball alcohol. She was evaluated in the emergency room 3 days ago with a fairly large work-up was done, she was diagnosed with gastroenteritis and discharged. She was actually improving and had a fairly good day yesterday, but this morning she drank some water and then made breakfast and her symptoms restarted. She arrived very uncomfortable, holding her upper abdomen and actively retching with dry heaves and "foam". She has a history of significant anxiety. She does not appear to be hyperventilating. 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: , Other (See Below) Other CAREER BASED INTERVENTION COORDINATOR History: cyst on ovary Musculoskeletal History: Reports: Fracture, Other (See Below) Other Musculoskeletal History: R hand Fx 5th metacarpal pinning 12/14/19 Neurological History: Reports: Headaches, Chronic, Head Trauma, Migraines Psychiatric History: Reports: Anxiety, Depression, Suicidal Ideation, Other (See Below) Other Psychiatric History: superficial cutting Endocrine/Metabolic History: Reports: None Hematologic History: Reports: None Immunologic History: Reports: None Oncologic (Cancer) History: Reports: None Dermatologic History: Reports: None - Infectious Disease History Infectious Disease History: Reports: Chicken Pox - Past Surgical History Head Surgeries/Procedures: Reports: None HEENT Surgical History: Reports: None Female Surgical History: Reports: Section Musculoskeletal Surgical History: Reports: None Other Musculoskeletal Surgeries/Procedures:: right hand pinning 12/14/19 Dermatological Surgical History: Reports: None Social & Family History - Family History Family Medical History: No Pertinent Family History HEENT: Reports: Impaired Vision Cardiac: Reports: [place] Neurological: Reports: CVA, Dementia, Seizure Psychiatric: Reports: Anxiety, Depression, Other (See Below) Other Psychiatric Family History: substance abuse Oncologic: Reports: Lung - Tobacco Use Tobacco Use Status *Q: Current Every Day Tobacco User Years of Tobacco use: 10 Packs/Tins Daily: 1 - Caffeine Use Caffeine Use: Reports: Coffee, Energy Drinks, Soda - Alcohol Use Days Per Week of Alcohol Use: 2 Number of Drinks Per Day: 2 Total Drinks Per Week: 4 - Recreational Drug Use Recreational Drug Use: No ED ROS GENERAL - Review of Systems Review Of Systems: See Below Constitutional: Reports: Malaise, Decreased Appetite. Denies: Fever, Chills HEENT: Reports: No Symptoms Respiratory: Denies: Shortness of Breath Cardiovascular: Denies: Chest Pain GI/Abdominal: Reports: Abdominal Pain (Epigastric:), Hematemesis (Patient is concerned she may have had some slight hematemesis), Nausea, Vomiting. Denies: Constipation, Diarrhea : Reports: No Symptoms Skin: Reports: No Symptoms Neurological: Reports: No Symptoms Psychiatric: Reports: Anxiety ED EXAM, GI/ABD - Physical Exam Exam: See Below Exam Limited By: No Limitations General Appearance: Alert, Mild Distress (Looks fairly uncomfortable) Eyes: Bilateral: Normal Appearance (No jaundice) Head: Atraumatic Respiratory/Chest: No Respiratory Distress, Lungs Clear Cardiovascular: Regular Rate, Rhythm. No: Tachycardia GI/Abdominal Exam: Normal Bowel Sounds, Tender (Very tender to palpation only over the epigastric area, lower abdomen not as tender without guarding). No: Distended Neurological: Alert, Oriented, No Motor/Sensory Deficits Psychiatric: Anxious Skin Exam: Warm, Dry Course - Vital Signs Last Recorded V/S: Last Vital Signs Temp 99.0 F 11/28/20 11:38 Pulse 70 11/28/20 13:41 Resp 16 11/28/20 13:41 BP 124/78 11/28/20 13:41 Pulse Ox 98 11/28/20 13:41 - Orders/Labs/Meds Orders: Active Orders 24 hr Category Date Time Status Iopamidol [Isovue-300 (61%)] Med 11/28/20 13:15 Active 100 ml IV . DIRECTED Sodium Chloride 0.9% [Normal Saline] 1,000 ml Med 11/28/20 12:15 Active IV ASDIRECTED Sodium Chloride 0.9% [Normal Saline] 100 ml Med 11/28/20 13:15 Active IV ASDIRECTED Medication Orders Sodium Chloride (Normal Saline) 1,000 mls @ 1,000 mls/hr IV ASDIRECTED DOMINIC Last Admin: 11/28/20 12:40 Dose: 1,000 mls/hr Documented by: PHYLLIS Sodium Chloride (Normal Saline) 100 mls @ 3 mls/sec IV ASDIRECTED DOMINIC Last Admin: 11/28/20 13:30 Dose: 3 mls/sec Documented by: JYO Iopamidol (Isovue-300 (61%)) 100 ml IV . DIRECTED DOMINIC Last Admin: 11/28/20 13:29 Dose: 100 ml Documented by: JOY Labs: Laboratory Tests 11/28/20 11/28/20 11/28/20 Range/Units 12:26 12:26 12:26 WBC 11.5 H (4.5-11.0) K/uL RBC 5.21 (3.30-5.50) M/uL Hgb 16.5 H (12.0-15.0) g/dL Hct 47.2 (36.0-48.0) % MCV 91 (80-98) fL MCH 32 H (27-31) pg MCHC 35 (32-36) % Plt Count 211 (150-400) K/uL Neut % (Auto) 80 H (36-66) % Lymph % (Auto) 14 L (24-44) % [place] % (Auto) 6 (2-6) % Eos % (Auto) 1 L (2-4) % Baso % (Auto) 0 (0-1) % Sodium 143 (140-148) mmol/L Potassium 3.5 L (3.6-5.2) mmol/L Chloride 105 (100-108) mmol/L Carbon Dioxide 24 (21-32) mmol/L Anion Gap 17.5 H (5.0-14.0) mmol/L BUN 14 (7-18) mg/dL Creatinine 0.9 (0.6-1.0) mg/dL Est Cr Clr Drug Dosing 76.89 mL/min Estimated GFR (MDRD) > 60 (>60) Glucose 88 (74-106) mg/dL Lactic Acid 1.4 (0.4-2.0) mmol/L Calcium 9.4 (8.5-10.1) mg/dL Total Bilirubin 1.3 H (0.2-1.0) mg/dL AST 16 (15-37) U/L ALT 25 (12-78) U/L Alkaline Phosphatase 73 (46-116) U/L Total Protein 7.5 (6.4-8.2) g/dL Albumin 4.3 (3.4-5.0) g/dL Globulin 3.2 (2.3-3.5) g/dL Albumin/Globulin Ratio 1.3 (1.2-2.2) Lipase 101 (73-393) U/L Meds: Medications Generic Name Dose Route Start Last Admin Trade Name Freq PRN Reason Stop Dose Admin Sodium Chloride 1,000 mls @ 1,000 mls/hr 11/28/20 12:15 11/28/20 12:40 Normal Saline IV 1,000 mls/hr ASDIRECTED DOMINIC Administration Sodium Chloride 100 mls @ 3 mls/sec 11/28/20 13:15 11/28/20 13:30 Normal Saline IV 3 mls/sec ASDIRECTED DOMINIC Administration Iopamidol 100 ml 11/28/20 13:15 11/28/20 13:29 Isovue-300 (61%) IV 100 ml . DIRECTED DOMINIC Administration Discontinued Medications Generic Name Dose Route Start Last Admin Trade Name Freq PRN Reason Stop Dose Admin Hydromorphone HCl 0.5 mg 11/28/20 12:07 11/28/20 12:37 Dilaudid IVPUSH 11/28/20 12:08 0.5 mg ONETIME ONE Administration Lorazepam 1 mg 11/28/20 12:07 11/28/20 12:38 Ativan IVPUSH 11/28/20 12:08 1 mg ONETIME ONE Administration Pantoprazole Sodium 40 mg 11/28/20 13:18 11/28/20 13:38 Protonix Iv IVPUSH 11/28/20 13:19 40 mg ONETIME ONE Administration Sodium Chloride 10 ml 11/28/20 13:05 11/28/20 13:29 Saline Flush FLUSH 11/28/20 13:06 10 ml ONETIME ONE Administration - Radiology Interpretation Free Text/Narrative:: White count is just slightly elevated, lactic acid is normal and chemistry profile reassuring. Lipase is normal. Patient was feeling better after the medications and fluid, she will be given 40 mg of IV Protonix and the CT with IV contrast was ordered of the abdomen and pelvis. - Re-Assessments/Exams Free Text/Narrative Re-Assessment/Exam: 11/28/20 13:17 IV was started and the patient will be given 0.5 mg of IV Dilaudid, 1 mg of Ativan, and 1 L of normal saline. CBC CMP lactic acid and lipase were obtained and if kidney function is adequate IV contrast-enhanced abdomen and pelvis CT obtained. 11/28/20 14:37 CTs show some mild gastric wall thickening but no other significant abnormality. Patient felt much better after the IV medications. She will be discharged and encouraged to stick with clear liquids for the rest of today, start 40 mg of omeprazole daily for 1 week. Advance diet as tolerated and return if worsening or concerns. Departure - Departure Time of Disposition: 15:09 Disposition: Home, Self-Care 01 Clinical Impression: Gastritis Qualifiers: Gastritis type: unspecified gastritis Chronicity: acute Gastritis bleeding: without bleeding Qualified Code(s): K29.00 - Acute gastritis without bleeding Nausea and vomiting Qualifiers: Vomiting type: unspecified Vomiting Intractability: non-intractable Qualified Code(s): R11.2 - Nausea with vomiting, unspecified - Discharge Information Instructions: Gastritis, Adult, [id number] Referrals: PCP,None [Primary Care Provider] - Forms: ED Department Discharge Care Plan Goals: Stick with just liquids for the rest of today, advance diet slowly over the next several days and start 40 mg of omeprazole daily tomorrow morning. Return if not improving satisfactorily after 2 to 3 days. Sepsis Event Note (ED) - Evaluation Sepsis Screening Result: No Definite Risk - Focused Exam Vital Signs: Vital Signs Temp Pulse Resp BP Pulse Ox 11/28/20 13:41 70 16 124/78 98 11/28/20 12:43 54 L 14 111/65 96 11/28/20 11:38 99.0 F 53 L 17 135/85 99 11/28/20 11:27 99.0 F 53 L 17 135/85 99 - My Orders Last 24 Hours: My Active Orders 11/28/20 12:15 Sodium Chloride 0.9% [Normal Saline] 1,000 ml IV ASDIRECTED 11/28/20 13:15 Iopamidol [Isovue-300 (61%)] 100 ml IV . DIRECTED Sodium Chloride 0.9% [Normal Saline] 100 ml IV ASDIRECTED - Assessment/Plan Last 24 Hours: My Active Orders 11/28/20 12:15 Sodium Chloride 0.9% [Normal Saline] 1,000 ml IV ASDIRECTED 11/28/20 13:15 Iopamidol [Isovue-300 (61%)] 100 ml IV . DIRECTED Sodium Chloride 0.9% [Normal Saline] 100 ml IV ASDIRECTED
[2020-11-28] MEDS ORDERED: Sodium Chloride 0.9% 10 ML Syringe FLUSH ONE (13:05)
[2020-11-28] MEDS ORDERED: Sodium Chloride 0.9% 100 ML IV SCH (13:15)
[2020-11-28] MEDS ORDERED: Iopamidol 612 MG/ML 100 ML Bottle IV SCH (13:15)
[2020-11-28] MEDS ORDERED: Pantoprazole 40 MG Vial IVPUSH ONE (13:18)
[2020-11-28 13:42] VITALS: BP 124/78; PULSE 70
--- NOTE | 2020-11-28 14:22 | CT ---
Abdomen Pelvis w Cont CLINICAL HISTORY: Pain and vomiting COMPARISON: None available. TECHNIQUE: Transverse scans were obtained from the base of the lungs to the pubic symphysis following IV infusion of contrast.Auto dosage reduction and iterative reconstructiontechniques employed. FINDINGS: The lung bases are clear. The liver shows no mass or biliary dilatation. The gallbladder has a normal contour. The spleen has normal size and shape. There is suggestion of some thickening of the gastric mucosa with some mild mucosal enhancement. The pancreas shows no mass or inflammatory change. The adrenal glands appear normal bilaterally . The kidneys show no mass, stones or hydronephrosis. The ureters have a normal course and caliber. The bladder is generally thick-walled. This may be exaggerated bilaterally distention. The uterus is to the right of midline. There are multiple mildly prominent tortuous. Uterine and. Adnexal vessels likely pelvic veins. There is a small amount of free fluid in the cul-de-sac The aorta has a normal contour. There is no suspicious retroperitoneal adenopathy. The small intestinal configuration is nonacute. The appendix has a normal contour. IMPRESSION: There is mild prominence of the gastric mucosa which may represent some gastroenteritis Mild generalized thickening the bladder wall. This may be due to lack of distention. Cystitis is not excluded
== END 2020-11-28 15:19 | disposition home or self-care (01) ==
LOC: JP.ED 11:11
DX: K29.00 Acute gastritis without bleeding (principal); Z72.0 Tobacco use
CPT/HCPCS: 36415; 74177; 74177-26; 80053; 83605; 83690; 85025; 96374; 96375; 99284; 99284-25; C9113; J1170; J2060; J7030; Q9967

== ENCOUNTER 2021-02-23 04:12 | Emergency (ER) | payer MEDICAID ==
[2021-02-23 04:34] VITALS: BP 141/79; PULSE 61
[2021-02-23] MEDS ORDERED: Ondansetron 4 MG/2 ML SDV IVPUSH ONE (04:45)
[2021-02-23] MEDS ORDERED: Sodium Chloride 0.9% 10 ML Syringe FLUSH PRN (04:45)
[2021-02-23] MEDS ORDERED: Sodium Chloride 0.9% 1,000 ML IV ONE (04:45)
[2021-02-23] MEDS ORDERED: Ketorolac 30 MG/ML SDV IVPUSH ONE (04:53)
--- NOTE | 2021-02-23 04:59 | EDM.PDOC ---
ED HPI GENERAL MEDICAL PROBLEM - General Chief Complaint: Gastrointestinal Problem Stated Complaint: VOMITING LAST 3 DAYS Time Seen by Provider: 02/23/21 04:41 Source of Information: Reports: Patient, Old Records History Limitations: Reports: No Limitations - History of Present Illness INITIAL COMMENTS - FREE TEXT/NARRATIVE: Halie is a 25-year-old female presenting to the ED for evaluation of epigastric abdominal pain, nausea, vomiting, and diarrhea for the last 3 days. Patient states that at the onset of her symptoms she was vomiting every 15 minutes for the first day. She has not been able to eat or drink much. Patient states that she was feeling a little better yesterday and she tried to eat a small amount yesterday but this initiated her vomiting again. She has had loose stools but not more than 10 stools per day. She had similar symptoms in November attributed to acute gastroenteritis. She does use cannabis several times a week which she has done for many years. She had attributed her episode in November to ingesting fireball whiskey, but denies any alcohol use in the past week. She is complaining of headache, body aches, sore throat and fatigue in addition to her nausea, vomiting, and diarrhea. 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: , Other (See Below) Other TNT POWDER WORKER History: cyst on ovary Musculoskeletal History: Reports: Fracture, Other (See Below) Other Musculoskeletal History: R hand Fx 5th metacarpal pinning 12/14/19 Neurological History: Reports: Headaches, Chronic, Head Trauma, Migraines Psychiatric History: Reports: Anxiety, Depression, Suicidal Ideation, Other (See Below) Other Psychiatric History: superficial cutting Endocrine/Metabolic History: Reports: None Hematologic History: Reports: None Immunologic History: Reports: None Oncologic (Cancer) History: Reports: None Dermatologic History: Reports: None - Infectious Disease History Infectious Disease History: Reports: Chicken Pox - Past Surgical History Female Surgical History: Reports: Section Other Musculoskeletal Surgeries/Procedures:: right hand pinning 12/14/19 Social & Family History - Family History Family Medical History: No Pertinent Family History HEENT: Reports: Impaired Vision Cardiac: Reports: [place] Neurological: Reports: CVA, Dementia, Seizure Psychiatric: Reports: Anxiety, Depression, Other (See Below) Other Psychiatric Family History: substance abuse Oncologic: Reports: Lung - Tobacco Use Tobacco Use Status *Q: Current Every Day Tobacco User Years of Tobacco use: 10 Packs/Tins Daily: 0.5 Used Tobacco, but Quit: No Second Hand Smoke Exposure: Yes - Caffeine Use Caffeine Use: Reports: Coffee, Energy Drinks, Soda, Tea - Alcohol Use Days Per Week of Alcohol Use: 2 Number of Drinks Per Day: 3 Total Drinks Per Week: 6 - Recreational Drug Use Recreational Drug Use: Yes Recreational Drug Type: Reports: Marijuana/Hashish Recreational Drug Use Frequency: Weekly ED ROS GENERAL - Review of Systems Review Of Systems: See Below Constitutional: Reports: Chills, Fatigue, Decreased Appetite HEENT: Reports: Throat Pain Respiratory: Reports: Cough Cardiovascular: Reports: No Symptoms Endocrine: Reports: Fatigue GI/Abdominal: Reports: Abdominal Pain, Diarrhea, Nausea, Vomiting : Reports: No Symptoms Musculoskeletal: Reports: Muscle Pain Skin: Reports: No Symptoms Neurological: Reports: Headache Psychiatric: Reports: Anxiety Hematologic/Lymphatic: Reports: No Symptoms Immunologic: Reports: No Symptoms ED EXAM, GI/ABD - Physical Exam Exam: See Below Exam Limited By: No Limitations General Appearance: Alert, Mild Distress Eyes: Bilateral: EOMI Throat/Mouth: Normal Voice, No Airway Compromise, Other (Dry mucous membranes) Head: Atraumatic, Normocephalic Neck: Normal Inspection, Supple, Non-Tender, Full Range of Motion. No: Lymphadenopathy (R), Lymphadenopathy (L) Respiratory/Chest: No Respiratory Distress, Lungs Clear, Normal Breath Sounds Cardiovascular: Normal Peripheral Pulses, Regular Rate, Rhythm, No Murmur. No: Tachycardia GI/Abdominal Exam: Soft, No Distention, Tender (Midline abdominal tenderness to palpation), Abnormal Bowel Sounds (Diminished bowel sounds). No: Guarding, Rigi d, Rebound Back Exam: Normal Inspection, Full Range of Motion Extremities: Normal Inspection, Normal Range of Motion Neurological: Alert, Oriented, Normal Cognition, No Motor/Sensory Deficits Psychiatric: Normal Affect, Normal Mood Skin Exam: Warm, Dry, Intact, Normal Color Lymphatic: No Adenopathy Course - Vital Signs Last Recorded V/S: Last Vital Signs Temp 36.6 C 02/23/21 04:31 Pulse 61 02/23/21 04:31 Resp 16 02/23/21 04:31 BP 141/79 H 02/23/21 04:31 Pulse Ox 99 02/23/21 04:31 - Orders/Labs/Meds Orders: Active Orders 24 hr Category Date Time Status Abdomen Pelvis w Cont [CT] Stat Exams 02/23/21 05:28 Ordered COVID-19/FLU A+B/RSV [MOLEC] Stat Lab 02/23/21 04:56 Ordered UA W/MICROSCOPIC [URIN] Stat Lab 02/23/21 04:45 Ordered Iopamidol [Isovue-300 (61%)] Med 02/23/21 05:45 Active 92 ml IV . DIRECTED Sodium Chloride 0.9% [Normal Saline] 70 ml Med 02/23/21 05:45 Active IV ASDIRECTED Sodium Chloride 0.9% [Saline Flush] Med 02/23/21 04:45 Ordered 10 ml FLUSH ASDIRECTED PRN Isolation [COMM] Stat Oth 02/23/21 04:57 Ordered Saline Lock Insert [OM.PC] Routine Oth 02/23/21 04:45 Ordered Medication Orders Sodium Chloride (Normal Saline) 70 mls @ 3.5 mls/sec IV ASDIRECTED DOMINIC Iopamidol (Iopamidol 612 Mg/Ml 100 Ml Bottle) 92 ml IV . DIRECTED DOMINIC Sodium Chloride (Sodium Chloride 0.9% 10 Ml Syringe) 10 ml FLUSH ASDIRECTED PRN PRN Reason: Keep Vein Open Labs: Laboratory Tests 02/23/21 02/23/21 Range/Units 04:50 04:50 WBC 7.4 (4.5-11.0) K/uL RBC 4.94 (3.30-5.50) M/uL Hgb 15.4 H (12.0-15.0) g/dL Hct 45.0 (36.0-48.0) % MCV 91 (80-98) fL MCH 31 (27-31) pg MCHC 34 (32-36) % Plt Count 250 (150-400) K/uL Neut % (Auto) 60 (36-66) % Lymph % (Auto) 24 (24-44) % [place] % (Auto) 14 H (2-6) % Eos % (Auto) 2 (2-4) % Baso % (Auto) 0 (0-1) % Sodium 142 (140-148) mmol/L Potassium 3.4 L (3.6-5.2) mmol/L Chloride 102 (100-108) mmol/L Carbon Dioxide 28 (21-32) mmol/L Anion Gap 15.4 H (5.0-14.0) mmol/L BUN 19 H (7-18) mg/dL Creatinine 1.0 (0.6-1.0) mg/dL Est Cr Clr Drug Dosing 69.20 mL/min Estimated GFR (MDRD) > 60 (>60) Glucose 109 H (74-106) mg/dL Calcium 9.3 (8.5-10.1) mg/dL Total Bilirubin 0.7 (0.2-1.0) mg/dL AST 23 (15-37) U/L ALT 58 D (12-78) U/L Alkaline Phosphatase 80 (46-116) U/L Total Protein 7.5 (6.4-8.2) g/dL Albumin 4.1 (3.4-5.0) g/dL Globulin 3.4 (2.3-3.5) g/dL Albumin/Globulin Ratio 1.2 (1.2-2.2) Lipase 94 (73-393) U/L Meds: Medications Generic Name Dose Route Start Last Admin Trade Name Freq PRN Reason Stop Dose Admin Sodium Chloride 70 mls @ 3.5 mls/sec 02/23/21 05:45 Normal Saline IV ASDIRECTED DOMINIC Iopamidol 92 ml 02/23/21 05:45 Iopamidol 612 Mg/Ml 100 Ml Bottle IV . DIRECTED DOMINIC Sodium Chloride 10 ml 02/23/21 04:45 Sodium Chloride 0.9% 10 Ml Syringe FLUSH ASDIRECTED PRN Keep Vein Open Discontinued Medications Generic Name Dose Route Start Last Admin Trade Name Freq PRN Reason Stop Dose Admin Sodium Chloride 1,000 mls @ 999 mls/hr 02/23/21 04:45 02/23/21 05:11 Normal Saline IV 02/23/21 05:45 999 mls/hr .BOLUS ONE Administration Ketorolac Tromethamine 30 mg 02/23/21 04:53 02/23/21 05:13 Ketorolac 30 Mg/Ml Sdv IVPUSH 02/23/21 04:54 30 mg ONETIME ONE Administration Ondansetron HCl 4 mg 02/23/21 04:45 02/23/21 05:12 Ondansetron 4 Mg/2 Ml Sdv IVPUSH 02/23/21 04:46 4 mg ONETIME ONE Administration Sodium Chloride 10 ml 02/23/21 05:37 Sodium Chloride 0.9% 10 Ml Syringe FLUSH 02/23/21 05:38 ONETIME ONE - Radiology Interpretation Free Text/Narrative:: I reviewed the results of the CT of the abdomen and pelvis as well as the images. There is no acute abnormalities noted. - Re-Assessments/Exams Free Text/Narrative Re-Assessment/Exam: 02/23/21 06:04 I reviewed the patient's labs showing a normal CBC and comprehensive metabolic panel. Her lipase is also normal. We are awaiting urinalysis. Patient did undergo a CT of the abdomen and pelvis with IV contrast for evaluation of her abdominal pain. 02/23/21 06:10 Covid, influenza, and RSV are negative. Departure - Departure Time of Disposition: 06:26 Disposition: Home, Self-Care 01 Clinical Impression: Gastroenteritis, Dehydration - Discharge Information Instructions: Viral Gastroenteritis, Adult, [id number], Dehydration, Adult, [id number] Referrals: PCP,None [Primary Care Provider] - Forms: ED Department Discharge Care Plan Goals: Plan is to send you home with a prescription for oral Zofran 4 mg every 8 hours as needed for nausea and vomiting. Labs and x-rays were unremarkable for any significant findings. I would recommend sticking with the BRAT diet which is bananas, rice, applesauce, and toast until the diarrhea subsides. These are things that are easier to digest. Make sure you drink frequent small amounts of fluids to remain hydrated. Sepsis Event Note (ED) - Evaluation Sepsis Screening Result: No Definite Risk - Focused Exam Vital Signs: Vital Signs Temp Pulse Resp BP Pulse Ox 02/23/21 04:31 36.6 C 61 16 141/79 H 99 - Problem List & Annotations (1) Gastroenteritis SNOMED Code(s): 08575901 Code(s): K52.9 - NONINFECTIVE GASTROENTERITIS AND COLITIS, UNSPECIFIED Status: Acute Priority: High Current Visit: Yes (2) Dehydration SNOMED Code(s): 49809449 Code(s): E86.0 - DEHYDRATION Status: Acute Priority: High Current Visit: Yes - Problem List Review Problem List Initiated/Reviewed/Updated: Yes - My Orders Last 24 Hours: My Active Orders 02/23/21 04:45 UA W/MICROSCOPIC [URIN] Stat Sodium Chloride 0.9% [Saline Flush] 10 ml FLUSH ASDIRECTED PRN Saline Lock Insert [OM.PC] Routine 02/23/21 04:56 COVID-19/FLU A+B/RSV [MOLEC] Stat 02/23/21 04:57 Isolation [COMM] Stat 02/23/21 05:28 Abdomen Pelvis w Cont [CT] Stat 02/23/21 05:45 Iopamidol [Isovue-300 (61%)] 92 ml IV . DIRECTED Sodium Chloride 0.9% [Normal Saline] 70 ml IV ASDIRECTED - Assessment/Plan Last 24 Hours: My Active Orders 02/23/21 04:45 UA W/MICROSCOPIC [URIN] Stat Sodium Chloride 0.9% [Saline Flush] 10 ml FLUSH ASDIRECTED PRN Saline Lock Insert [OM.PC] Routine 02/23/21 04:56 COVID-19/FLU A+B/RSV [MOLEC] Stat 02/23/21 04:57 Isolation [COMM] Stat 02/23/21 05:28 Abdomen Pelvis w Cont [CT] Stat 02/23/21 05:45 Iopamidol [Isovue-300 (61%)] 92 ml IV . DIRECTED Sodium Chloride 0.9% [Normal Saline] 70 ml IV ASDIRECTED
[2021-02-23] MEDS ORDERED: Sodium Chloride 0.9% 10 ML Syringe FLUSH ONE (05:37)
[2021-02-23] MEDS ORDERED: Iopamidol 612 MG/ML 100 ML Bottle IV SCH (05:45)
[2021-02-23 06:02] LABS: CORONAVIRUS COVID-19 NAA NEGATIVE (NEGATIVE)
--- NOTE | 2021-02-23 06:23 | CRLCT ---
INDICATION: Vomiting and diarrhea for 3 days TECHNIQUE: CT Abdomen and pelvis with i.v. contrast. Coronal and sagittal reformats were obtained. CONTRAST: 92 mL Isovue 300 COMPARISON: 11/28/2020 FINDINGS: Lower chest: Unremarkable. Liver: Unremarkable. Spleen: Unremarkable. Pancreas: Unremarkable. Gallbladder: Unremarkable. Kidney: Unremarkable. No kidney or ureteral stones or obstruction seen. Adrenal: Unremarkable. Bowel: Unremarkable. The appendix is normal in appearance and size. Vascular: Unremarkable. Lymph: Unremarkable. Peritoneum: Unremarkable. No pneumoperitoneum is seen. No significant ascites is noted. Pelvis: Unremarkable. Soft tissue: Unremarkable. Bone: Unremarkable for age. IMPRESSION: 1. Unremarkable with no CT correlate for the patient`s symptoms seen. Dictated by Neo Ryan MD @ 02/23/2021 6:22:25 AM Please note that all CT scans at this facility use dose modulation, iterative reconstruction, and/or weight-based dosing when appropriate to reduce radiation dose to as low as reasonably achievable. Dictated by: Neo Ryan MD @ 02/23/2021 06:22:30 (Electronically Signed)
== END 2021-02-23 06:58 | disposition home or self-care (01) ==
LOC: JP.ED 04:12
DX: K52.9 Noninfective gastroenteritis and colitis, unspecified (principal); E86.0 Dehydration; Z20.822 Contact with and (suspected) exposure to COVID-19; Z72.0 Tobacco use
CPT/HCPCS: 0241U; 36415; 74177; 80053; 83690; 85025; 96374; 96375; 99284; J1885; J2405; J7030; Q9967

== ENCOUNTER 2021-11-15 23:53 | Emergency (ER) | payer MEDICAID ==
[2021-11-16 00:15] VITALS: BP 121/102; PULSE 93
== END 2021-11-16 03:10 | disposition home or self-care (01) ==
LOC: JP.ED 23:53
DX: T76.21XA Adult sexual abuse, suspected, initial encounter (principal)
CPT/HCPCS: 99284

== ENCOUNTER 2022-06-08 12:53 | Emergency (ER) | payer MEDICAID ==
[2022-06-08 14:24] VITALS: BP 119/77; PULSE 60
[2022-06-08] MEDS ORDERED: Ondansetron 4 MG/2 ML SDV IVPUSH ONE (15:02)
[2022-06-08] MEDS ORDERED: Sodium Chloride 0.9% 1,000 ML IV SCH (15:15)
== END 2022-06-08 17:01 | disposition home or self-care (01) ==
LOC: JP.ED 12:53
DX: R11.2 Nausea with vomiting, unspecified (principal); R10.84 Generalized abdominal pain; Z79.899 Other long term (current) drug therapy
CPT/HCPCS: 36415; 80048; 83690; 85025; 96361; 96374; 96375; 99284; J1790; J2405; J7030; 99282

== ENCOUNTER 2022-09-10 11:05 | Emergency (ER) | payer MEDICAID ==
[2022-09-10 13:26] VITALS: BP 146/59; PULSE 53
== END 2022-09-10 12:58 | disposition left against medical advice (07) ==
LOC: JP.ED 11:05
DX: Z53.21 Procedure and treatment not carried out due to patient leaving prior to being seen by health care provider (principal)

== ENCOUNTER 2022-09-10 19:06 | Emergency (ER) | payer MEDICAID ==
[2022-09-10 19:45] VITALS: BP 133/93; PULSE 105
[2022-09-10] MEDS ORDERED: Ondansetron 4 MG/2 ML SDV IVPUSH ONE (20:29)
[2022-09-10] MEDS ORDERED: Sodium Chloride 0.9% 10 ML Syringe FLUSH PRN (20:29)
[2022-09-10] MEDS ORDERED: Sodium Chloride 0.9% 1,000 ML IV SCH (20:30)
[2022-09-10 21:15] LABS: ESTIMATED GFR 64 mL/min (>60)
== END 2022-09-10 22:45 | disposition home or self-care (01) ==
LOC: JP.ED 19:06
DX: E86.0 Dehydration (principal); R11.2 Nausea with vomiting, unspecified; F17.210 Nicotine dependence, cigarettes, uncomplicated; Z86.16 Personal history of COVID-19
CPT/HCPCS: 36415; 80053; 81001; 81025; 83605; 83690; 85025; 96361; 96374; 96375; 99284; J1790; J2405; J3490; J7030

== ENCOUNTER 2023-02-13 23:20 | Emergency (ER) | payer MEDICAID ==
[2023-02-13 23:33] VITALS: BP 94/65; PULSE 60
[2023-02-13] MEDS ORDERED: Sodium Chloride 0.9% 1,000 ML IV SCH (23:45)
[2023-02-13] MEDS ORDERED: Ondansetron 4 MG/2 ML SDV IVPUSH ONE (23:56)
[2023-02-13] MEDS ORDERED: droPERidol 5 MG/2 ML SDV IVPUSH ONE (23:57)
[2023-02-14 00:39] LABS: ESTIMATED GFR 72 mL/min (>60)
[2023-02-14] MEDS ORDERED: Potassium Chloride 20 MEQ Tab.ER PO ONE (00:45)
== END 2023-02-14 01:28 | disposition home or self-care (01) ==
LOC: JP.ED 23:20
DX: R11.2 Nausea with vomiting, unspecified (principal); Z86.16 Personal history of COVID-19; Z72.0 Tobacco use
CPT/HCPCS: 36415; 80053; 83690; 85025; 96361; 96374; 96375; 99283; 99284-25; A9270-GY; J1790; J2405; J7030

== ENCOUNTER 2023-02-16 16:48 | Emergency (ER) | payer MEDICAID ==
[2023-02-16 18:54] VITALS: BP 123/79; PULSE 74
[2023-02-16] MEDS ORDERED: Potassium Chloride 20 MEQ Tab.ER PO ONE (19:47)
== END 2023-02-16 20:00 | disposition home or self-care (01) ==
LOC: JP.ED 16:48
DX: E87.6 Hypokalemia (principal); R11.15 Cyclical vomiting syndrome unrelated to migraine; R10.30 Lower abdominal pain, unspecified; Z72.0 Tobacco use
CPT/HCPCS: 36415; 80048; 83690; 85025; 99284; A9270; 99283

== ENCOUNTER 2023-10-15 22:47 | Emergency (ER) | payer MEDICAID ==
[2023-10-15] MEDS ORDERED: Lidocaine 1% 10 ML MDV INJECT ONE (23:53)
[2023-10-15] MEDS ORDERED: Bacitracin Oint 1 GM U/D Packet TOP ONE (23:54)
[2023-10-16 00:13] VITALS: BP 111/67; PULSE 91
== END 2023-10-16 00:31 | disposition left against medical advice (07) ==
LOC: JP.ED 22:47
DX: S09.90XA Unspecified injury of head, initial encounter (principal); Z86.16 Personal history of COVID-19; W18.30XA Fall on same level, unspecified, initial encounter
CPT/HCPCS: 99283

== ENCOUNTER 2023-10-16 01:22 | Emergency (ER) | payer MEDICAID ==
[2023-10-16 01:37] VITALS: BP 120/75; PULSE 102
[2023-10-16] MEDS ORDERED: Bacitracin Oint 1 GM U/D Packet TOP ONE (02:04)
[2023-10-16] MEDS ORDERED: Lidocaine 1% 10 ML MDV INJECT ONE (02:04)
== END 2023-10-16 02:49 | disposition home or self-care (01) ==
LOC: JP.ED 01:22
DX: S01.01XA Laceration without foreign body of scalp, initial encounter (principal); F10.929 Alcohol use, unspecified with intoxication, unspecified; Z86.16 Personal history of COVID-19; Z98.890 Other specified postprocedural states; W18.30XA Fall on same level, unspecified, initial encounter
CPT/HCPCS: 12001; 12002; 70450; 99282; 99283

== ENCOUNTER 2024-07-03 16:00 | Emergency (ER) | payer SELFPAY ==
[2024-07-03 16:16] VITALS: BP 107/74; PULSE 77
== END 2024-07-03 18:12 | disposition home or self-care (01) ==
LOC: JP.ED 16:00
DX: S06.0X9A Concussion with loss of consciousness of unspecified duration, initial encounter (principal); W19.XXXA Unspecified fall, initial encounter
CPT/HCPCS: 70450; 81025; 99283; 99284

== ENCOUNTER 2025-09-02 02:22 | Emergency (ER) | payer MEDICAID ==
[2025-09-02 02:48] LABS: BASOPHILS ABSOLUTE AUTO 0.08 K/uL (0.00-0.10); BASOPHILS PERCENT AUTO 0.5 % (0.1-1.3); EOSINOPHILS PERCENT AUTO 0.1 % (0.0-5.4); IMMATURE GRAN ABSOLUTE AUTO 0.06 K/uL (0.00-0.23); IMMATURE GRAN PERCENT AUTO 0.3 % (0.0-0.7); LYMPHOCYTES ABSOLUTE AUTO 2.20 K/uL (0.8-3.3); LYMPHOCYTES PERCENT AUTO 12.5 % (11.4-47.7); MONOCYTES ABSOLUTE AUTO 1.14 K/uL (0.20-0.90); MONOCYTES PERCENT AUTO 6.5 % (3.3-12.6); NEUTROPHILS ABSOLUTE AUTO 14.14 K/uL (1.0-7.6); NEUTROPHILS PERCENT AUTO 80.1 % (40.0-78.1); PLATELET COUNT,PLT 364 K/uL (130-375); RED BLOOD CELL COUNT 4.61 M/uL (3.77-5.24); WHITE BLOOD CELL COUNT,WBC 17.6 K/uL (3.2-11.0)
[2025-09-02 02:49] LABS: EOSINOPHILS ABSOLUTE AUTO 0.01 K/uL (0.00-0.40)
[2025-09-02 03:00] VITALS: BP 112/70; PULSE 112
[2025-09-02 03:09] LABS: A/G RATIO 1.2 (1.2-2.2); ALANINE AMINOTRANSFERASE,ALT 33 U/L (12-78); ASPARTATE AMNIOTRANSFERASE,AST 24 U/L (15-37); BILIRUBIN TOTAL 0.4 mg/dL (0.2-1.0); BLOOD UREA NITROGEN,BUN 17 mg/dL (7-18); CARBON DIOXIDE,CO2 23 mmol/L (21-32); CHLORIDE,CL 101 mmol/L (100-108); CREATININE 1.3 mg/dL (0.6-1.0); EST CRCL DRUG DOSING (CG) 50.96 mL/min; ESTIMATED GFR 57 mL/min (>60); GLUCOSE RANDOM 213 mg/dL (74-106); PROTEIN TOTAL,TP 7.6 g/dL (6.4-8.2); SODIUM,NA 139 mmol/L (140-148)
[2025-09-02 03:10] LABS: POTASSIUM,K 2.8 mmol/L (3.6-5.2)
[2025-09-02] MEDS: Potassium Chloride 20 MEQ Tab.ER PO ONE (03:22)
== END 2025-09-02 03:37 ==
LOC: JP.ED 02:22
DX: R41.82 Altered mental status, unspecified (principal); R45.1 Restlessness and agitation; E87.6 Hypokalemia; F17.200 Nicotine dependence, unspecified, uncomplicated
CPT/HCPCS: 36415; 80053; 80307; 85025; 99285; A9270; 99284